=== PATIENT | female | born 1960 | race Caucasian/White ===

== ENCOUNTER 2020-04-02 08:06 | Outpatient (REF) | payer OTHER, SELFPAY ==
[2020-04-02 10:18] LABS: MANUAL DIFF FLAG NO
[2020-04-02 10:45] LABS: Basophils Percent Auto 0.5 % (0-2); Eosinophils Absolute Auto 0.1 X10*3/uL (0.0-0.4); Eosinophils Percent Auto 1.4 % (0-4); Hematocrit 41.9 % (37-47); Hemoglobin 13.5 g/dl (12.0-16.0); Imm Gran Abs Auto 0.02 X10*3/uL (0.00-0.03); Imm Gran Pct Auto 0.3 % (0.0-0.4); Lymphocytes Absolute Auto 1.7 X10*3/uL (1.2-4.9); Lymphocytes Percent Auto 25.5 % (20-40); Mean Corpuscular HGB Conc 32.2 g/dl (31.0-35.0); Mean Corpuscular Hemoglobin 28.8 pg (27.0-33.0); Mean Corpuscular Volume 89.5 fL (80-98); Monocytes Absolute Auto 0.7 X10*3/uL (0.1-1.2); Monocytes Percent Auto 10.4 % (2-11); Neutrophils Absolute Auto 4.1 X10*3/uL (2.0-8.3); Neutrophils Percent Auto 61.9 % (45-73); Platelet Count 234 X10*3/uL (160-400); Red Blood Count 4.68 X10*6/uL (4.20-5.50); Red Cell Distribution Width 12.9 % (11.0-16.0); White Blood Count 6.7 X10*3/uL (4.8-10.8)
[2020-04-02 10:49] LABS: Anion Gap 14 (12-20); Blood Urea Nitrogen 13 mg/dL (9-16); Calcium 8.4 mg/dL (8.4-10.2); Carbon Dioxide 31 mmol/L (22-29); Chloride 102 mmol/L (96-108); Cholesterol 159 mg/dL; Estimated Average Glucose 100 mg/dL; Estimated Glomerular Filt Rate > 60; Glucose Fasting 80 mg/dL (60-99); HDL Cholesterol 69 mg/dL; Hemoglobin A1c % 5.1 %; LDL Cholesterol Calculated 70 mg/dl; Sodium 143 mmol/L (135-145); Triglycerides 104 mg/dL
[2020-04-02 11:13] LABS: TSH reflex Free T4 2.06 mIU/mL (0.32-4.0)
== END 2020-04-02 08:07 | disposition home or self-care (01) ==
LOC: HO.LAB 08:06
PROVIDERS: Visit Provider Nurse Practitioner Family
DX: Z00.00 Encounter for general adult medical examination without abnormal findings (principal)
CPT/HCPCS: 36415; 80048; 80061; 83036; 84443; 85025

== ENCOUNTER 2020-10-16 16:24 | Outpatient (REF) | payer BC, SELFPAY | END 2020-10-16 16:25 | disposition home or self-care (01) | LOC: HO.LNP 16:24 | PROVIDERS: Visit Provider Nurse Practitioner Family | DX: N39.0 Urinary tract infection, site not specified (principal); R31.9 Hematuria, unspecified | CPT/HCPCS: 87086 ==

== ENCOUNTER 2021-03-12 08:41 | Outpatient (REF) | payer BC, SELFPAY ==
[2021-03-12 09:01] LABS: MANUAL DIFF FLAG NO
[2021-03-12 09:46] LABS: Basophils Percent Auto 0.6 % (0-2); Eosinophils Absolute Auto 0.1 X10*3/uL (0.0-0.4); Eosinophils Percent Auto 1.3 % (0-4); Hematocrit 42.1 % (37.0-47.0); Hemoglobin 13.6 g/dl (12.0-16.0); Imm Gran Abs Auto 0.02 X10*3/uL (0.00-0.03); Imm Gran Pct Auto 0.4 % (0.0-0.4); Lymphocytes Absolute Auto 1.5 X10*3/uL (1.2-4.9); Lymphocytes Percent Auto 27.7 % (20-40); Mean Corpuscular HGB Conc 32.3 g/dl (31.0-35.0); Mean Corpuscular Hemoglobin 28.9 pg (27.0-33.0); Mean Corpuscular Volume 89.4 fL (80.0-98.0); Mean Platelet Volume 10.1 fL (9.4-12.3); Monocytes Absolute Auto 0.5 X10*3/uL (0.1-1.2); Monocytes Percent Auto 9.9 % (2-11); Neutrophils Absolute Auto 3.3 x10*3/uL (2.0-8.3); Neutrophils Percent Auto 60.1 % (45-73); Platelet Count 239 X10*3/uL (160-400); Red Blood Count 4.71 X10*6/uL (4.20-5.50); Red Cell Distribution Width 12.8 % (11.0-16.0); White Blood Count 5.5 X10*3/uL (4.8-10.8)
[2021-03-12 10:28] LABS: Alanine Aminotransferase 28 U/L (0-31); Albumin Level 4.1 g/dL (3.5-5.0); Alkaline Phosphatase 74 U/L (39-117); Anion Gap 11 (12-20); Aspartate Amino Transferase 25 U/L (5-31); Bilirubin Total 0.4 mg/dL (0.0-1.0); Blood Urea Nitrogen 14 mg/dL (9-16); Calcium 9.3 mg/dL (8.4-10.2); Carbon Dioxide 33 mmol/L (22-29); Chloride 103 mmol/L (96-108); Cholesterol 154 mg/dL; Estimated Glomerular Filt Rate > 60; Glucose Random 97 mg/dL (60-115); HDL Cholesterol 61 mg/dL; LDL Cholesterol Calculated 75 mg/dl; Potassium 4.1 mmol/L (3.3-5.1); Sodium 143 mmol/L (135-145); Total Protein 6.7 g/dL (6.5-8.0); Triglycerides 90 mg/dL
[2021-03-12 10:35] LABS: Free T4 (Free Thyroxine) 0.93 ng/dL (0.71-1.85); Thyroid Stimulating Hormone 1.65 uIU/mL (0.32-4.0); Vitamin D 25-OH Total 13.7 ng/mL (>30)
[2021-03-12 10:49] LABS: Folate 10.3 ng/mL (> or = 4.0); Vitamin B12 312 pg/mL (200-900)
== END 2021-03-12 08:42 | disposition home or self-care (01) ==
LOC: HO.LAB 08:41
PROVIDERS: PCP Internal Medicine; Visit Provider Internal Medicine
DX: R03.0 Elevated blood-pressure reading, without diagnosis of hypertension (principal); E78.00 Pure hypercholesterolemia, unspecified
CPT/HCPCS: 36415; 80053; 80061; 82306; 82607; 82746; 84439; 84443; 85025

== ENCOUNTER 2021-03-26 08:01 | Outpatient (REF) | payer BC, SELFPAY ==
--- NOTE | ~2021-03-26 | MM_ITS ---
EXAMINATION: MM SCREENING DIGITAL BREAST TOMOSYNTHESIS, BILATERAL CLINICAL INFORMATION: Screening. Asymptomatic. The lifetime risk of breast cancer based on the Tyrer-Cuzick Model is 5%. COMPARISON: Outside mammography: 12/08/2017, 12/01/2017 ([facility]). Outside ultrasound right breast 12/08/2017 ([facility]). TECHNIQUE: Digital breast tomosynthesis is performed in both the craniocaudal and mediolateral oblique views along with computer-aided detection (CAD). Synthesized 2D images are generated from the tomosynthesis. Additional right MLO x2 views are provided. FINDINGS: The breasts are almost entirely fatty (ACR BI-RADS breast composition Category a). Background stromal and fibroglandular densities are stable. There is no interval mass or architectural abnormality or abnormal calcifications. There is a known intradermal epidermal inclusion cyst previously evaluated with ultrasound posterior upper inner right breast, current dimensions under 1 cm. The axilla are unremarkable. No significant changes. MM/MM tomosynthesis screening BI IMPRESSION: No mammographic evidence of malignancy. ASSESSMENT: BI-RADS 2: Benign RECOMMENDATION: Routine annual mammography screening. This patient's information was entered into a reminder system with a target due date for their next mammogram.
== END 2021-03-26 08:02 | disposition home or self-care (01) ==
LOC: HO.MAMMO 08:01
PROVIDERS: Visit Provider Internal Medicine
DX: Z12.31 Encounter for screening mammogram for malignant neoplasm of breast (principal)
CPT/HCPCS: 77063; 77067

== ENCOUNTER → 2021-04-23 11:04 | Outpatient (REF) | payer BC, SELFPAY | LOC: HO.SL 11:04 | PROVIDERS: PCP Internal Medicine; Visit Provider Internal Medicine | DX: Z13.89 Encounter for screening for other disorder (principal) ==

== ENCOUNTER → 2021-05-20 09:41 | Outpatient (REF) | payer BC, SELFPAY | LOC: HO.SL 09:41 | PROVIDERS: PCP Internal Medicine; Visit Provider Internal Medicine | DX: G47.10 Hypersomnia, unspecified (principal) | CPT/HCPCS: 95806 ==

== ENCOUNTER → 2021-06-19 20:53 | Outpatient (REF) | payer BC, SELFPAY | LOC: HO.SL 20:53 | PROVIDERS: PCP Internal Medicine; Visit Provider Internal Medicine | DX: G47.33 Obstructive sleep apnea (adult) (pediatric) (principal) | CPT/HCPCS: 95811 ==

== ENCOUNTER → 2021-07-08 09:51 | Outpatient (BNVA) | payer BC, SELFPAY | PROVIDERS: PCP Internal Medicine; Visit Provider Internal Medicine | DX: E66.01 Morbid (severe) obesity due to excess calories (principal); G47.33 Obstructive sleep apnea (adult) (pediatric); G47.36 Sleep related hypoventilation in conditions classified elsewhere; Z79.899 Other long term (current) drug therapy | CPT/HCPCS: 99202 ==

== ENCOUNTER 2021-12-11 08:57 | Outpatient (REF) | payer BC, SELFPAY ==
[2021-12-11 09:10] LABS: MANUAL DIFF FLAG NO
[2021-12-11 09:39] LABS: Basophils Percent Auto 0.5 % (0-2); Eosinophils Absolute Auto 0.1 X10*3/uL (0.0-0.4); Eosinophils Percent Auto 1.3 % (0-4); Hematocrit 39.9 % (37.0-47.0); Hemoglobin 13.2 g/dl (12.0-16.0); Imm Gran Abs Auto 0.01 X10*3/uL (0.00-0.03); Imm Gran Pct Auto 0.2 % (0.0-0.4); Lymphocytes Absolute Auto 1.4 X10*3/uL (1.2-4.9); Lymphocytes Percent Auto 23.2 % (20-40); Mean Corpuscular HGB Conc 33.1 g/dl (31.0-35.0); Mean Corpuscular Hemoglobin 28.9 pg (27.0-33.0); Mean Corpuscular Volume 87.3 fL (80.0-98.0); Mean Platelet Volume 9.7 fL (9.4-12.3); Monocytes Absolute Auto 0.6 X10*3/uL (0.1-1.2); Monocytes Percent Auto 9.6 % (2-11); Neutrophils Absolute Auto 3.9 x10*3/uL (2.0-8.3); Neutrophils Percent Auto 65.2 % (45-73); Platelet Count 226 X10*3/uL (160-400); Red Blood Count 4.57 X10*6/uL (4.20-5.50); Red Cell Distribution Width 13.1 % (11.0-16.0); White Blood Count 5.9 X10*3/uL (4.8-10.8)
[2021-12-11 10:04] LABS: Alanine Aminotransferase 23 U/L (0-31); Albumin Level 4.1 g/dL (3.5-5.0); Alkaline Phosphatase 80 U/L (39-117); Anion Gap 15 (12-20); Aspartate Amino Transferase 26 U/L (5-31); Bilirubin Total 0.7 mg/dL (0.0-1.0); Blood Urea Nitrogen 15 mg/dL (9-16); Calcium 9.2 mg/dL (8.4-10.2); Carbon Dioxide 28 mmol/L (22-29); Chloride 103 mmol/L (96-108); Cholesterol 144 mg/dL; Estimated Glomerular Filt Rate > 60; Glucose Random 89 mg/dL (60-115); HDL Cholesterol 63 mg/dL; LDL Cholesterol Calculated 68 mg/dl; Sodium 142 mmol/L (135-145); Total Protein 6.7 g/dL (6.5-8.0); Triglycerides 66 mg/dL
[2021-12-11 10:25] LABS: Free T4 (Free Thyroxine) 0.98 ng/dL (0.71-1.85); Thyroid Stimulating Hormone 2.03 uIU/mL (0.32-4.0)
[2021-12-11 10:49] LABS: Folate 10.2 ng/mL (> or = 4.0); Vitamin B12 299 pg/mL (200-900)
== END 2021-12-11 08:58 | disposition home or self-care (01) ==
LOC: HO.LAB 08:57
PROVIDERS: PCP Internal Medicine; Visit Provider Internal Medicine
DX: R30.0 Dysuria (principal); E78.00 Pure hypercholesterolemia, unspecified
CPT/HCPCS: 36415; 80053; 80061; 82306; 82607; 82746; 84439; 84443; 85025

== ENCOUNTER → 2022-06-11 09:23 | Outpatient (BNVA) | payer BC, SELFPAY | PROVIDERS: PCP Internal Medicine; Visit Provider Internal Medicine | DX: Z13.89 Encounter for screening for other disorder (principal) ==

== ENCOUNTER 2022-07-01 08:39 | Outpatient (REF) | payer BC, SELFPAY ==
--- NOTE | ~2022-07-01 | US_ITS ---
EXAMINATION: US ABDOMEN COMPLETE CLINICAL INFORMATION: Other specified abnormal findings of blood chemistry. COMPARISON: None available. TECHNIQUE: Real-time imaging of the abdominal viscera. FINDINGS: PANCREAS: Limited. The visualized pancreatic head and body are normal in appearance. The remainder of the pancreas is obscured from visualization by the overlying bowel gas. ABDOMINAL AORTA: The proximal, mid, and distal segments are normal in caliber. INFERIOR VENA CAVA: Visualized portions are normal. LIVER: The liver is normal in size. The liver contour is normal. There is diffuse increased liver parenchymal echogenicity. No focal hepatic lesion. There is no intrahepatic biliary duct dilatation seen. GALLBLADDER: Normal. The gallbladder is physiologically distended without evidence of stones, sludge, polyps, wall thickening or pericholecystic fluid. COMMON BILE DUCT: Normal in caliber measuring 0.3 cm in diameter. RIGHT KIDNEY: At the lower pole, a 2.5 cm in maximal diameter anechoic, simple cyst is seen. No hydronephrosis or renal calculi. The kidney measures 12.7 cm in maximum dimension. LEFT KIDNEY: Normal. No hydronephrosis. No renal calculi or focal parenchymal lesions. The kidney measures 10.6 cm in maximum dimension. SPLEEN: Normal. The spleen measures 12.1 cm in maximum dimension. FREE FLUID: None. US/US abdomen complete IMPRESSION: 1. There is generalized increase in hepatic echotexture, consistent with fatty infiltration or hepatocellular disease. Please correlate clinically. No focal hepatic mass or intrahepatic biliary dilatation is seen. 2. A 2.5 cm benign, simple right renal cyst is seen, for which no imaging follow-up is recommended. 3. Technically limited ultrasound examination of the pancreas.
== END 2022-07-01 08:40 | disposition home or self-care (01) ==
LOC: HO.HMGCX 08:39
PROVIDERS: PCP Internal Medicine; Visit Provider Internal Medicine
DX: R79.89 Other specified abnormal findings of blood chemistry (principal); R14.0 Abdominal distension (gaseous); R31.9 Hematuria, unspecified
CPT/HCPCS: 76700

== ENCOUNTER 2022-07-28 08:59 | Outpatient (REF) | payer BC, SELFPAY ==
--- NOTE | ~2022-07-28 | FL_ITS ---
EXAMINATION: FL UPPER GI SERIES CLINICAL INFORMATION: Dysphagia. COMPARISON: None available. TECHNIQUE: Routine upper GI air-contrast study was performed in upright and lying position. FINDINGS: Following oral administration of thick barium and effervescent granules there is normal propagation of bolus from the oral cavity through the pharynx, esophagus into stomach without any evidence of obstruction, narrowing or stricture. On placing patient supine and prone lying, there is moderate gastroesophageal reflux without hiatal hernia. The mucosal pattern of the stomach and the duodenum is normal. The course and the caliber and the peristalsis are normal. There is increased flocculation of barium in the distal stomach suspicious for hyperacidity. FLUOROSCOPY TIME: 2.2 minutes. DOSE AREA PRODUCT: 61.615 uGy-m2 (microgray-meter squared) FL/FL upper GI series IMPRESSION: 1. Moderate to large gastroesophageal reflux without hiatal hernia. 2. Increased flocculation of barium in the distal stomach suspicious for hyperacidity.
== END 2022-07-28 09:00 | disposition home or self-care (01) ==
LOC: HO.XRAY 08:59
PROVIDERS: PCP Internal Medicine; Visit Provider Internal Medicine
DX: R13.10 Dysphagia, unspecified (principal); E66.01 Morbid (severe) obesity due to excess calories
CPT/HCPCS: 74240

== ENCOUNTER 2022-07-29 13:55 | Outpatient (REF) | payer BC, SELFPAY ==
[2022-07-29 14:52] LABS: Appearance Urine Cloudy; Color Urine Dark Yellow; Glucose Urine UA Negative (Negative); Leukocyte Esterase Urine Moderate (2+) (Negative); Nitrite Urine Negative (Negative); PH 6.5 (5.0-9.0); Specific Gravity - Urine 1.025 (1.005-1.025); UMIC TRIGGER UACC YES; Urine Blood Moderate (2+) (Negative); Urine Ketones Trace mg/dL (Negative); Urine Protein 30 (1+) mg/dL (Neg-Trace)
[2022-07-30 01:14] LABS: Bacteria Urine None Seen (None Seen); RBC Urine >20 /HPF (0-2); UACC Culture Trigger YES; WBC Urine >50 /HPF (0-5)
== END 2022-07-29 13:56 | disposition home or self-care (01) ==
LOC: HO.LAB 13:55
PROVIDERS: PCP Internal Medicine; Visit Provider Internal Medicine
DX: R30.0 Dysuria (principal); R39.9 Unspecified symptoms and signs involving the genitourinary system
CPT/HCPCS: 81001; 87086

== ENCOUNTER 2022-08-20 11:06 | Outpatient (REF) | payer BC, SELFPAY ==
[2022-08-20 14:03] LABS: Urine Cytology See Pathology rpt
[2022-08-20 14:26] LABS: Appearance Urine Clear; Color Urine Yellow; Glucose Urine UA Negative (Negative); Leukocyte Esterase Urine Trace (Negative); Nitrite Urine Negative (Negative); PH 7.5 (5.0-9.0); Specific Gravity - Urine <= 1.005 (1.005-1.025); UMIC TRIGGER UACC YES; Urine Blood Trace (Negative); Urine Ketones Negative (Negative); Urine Protein Negative (Neg-Trace)
[2022-08-20 14:34] LABS: Bacteria Urine None Seen (None Seen); Hyaline Casts Urine 0-2 /LPF (0-2); RBC Urine 0-2 /HPF (0-2); Squamous Epithelial Cell Urine 0-2 /HPF (0-2); WBC Urine 0-5 /HPF (0-5)
== END 2022-08-20 11:07 | disposition home or self-care (01) ==
LOC: HO.LAB 11:06
PROVIDERS: PCP Internal Medicine; Visit Provider Internal Medicine
DX: R31.9 Hematuria, unspecified (principal)
CPT/HCPCS: 81001; 88112

== ENCOUNTER 2022-08-26 09:49 | Outpatient (REF) | payer BC, SELFPAY ==
--- NOTE | ~2022-08-26 | MM_ITS ---
EXAMINATION: MM SCREENING DIGITAL BREAST TOMOSYNTHESIS, BILATERAL CLINICAL INFORMATION: Screening. Asymptomatic. The lifetime risk of breast cancer based on the Tyrer-Cuzick Model is 6%. COMPARISON: Mammography: 03/26/2021; outside mammography 12/08/2017, 12/01/2017 ([facility]). Outside ultrasound right breast 12/08/2017 ([facility]). TECHNIQUE: Digital breast tomosynthesis is performed in both the craniocaudal and mediolateral oblique views along with computer-aided detection (CAD). Synthesized 2D images are generated from the tomosynthesis. FINDINGS: The breasts are almost entirely fatty (ACR BI-RADS breast composition Category a). Parenchymal pattern and stromal markings are similar to prior studies and there is no developing density or architectural abnormality. There are no significant masses, abnormal calcifications, or other abnormalities. There is a stable small intradermal lesion again seen posterior medial right breast. The axilla are unremarkable. MM/MM tomosynthesis screening BI IMPRESSION: No mammographic evidence of malignancy. ASSESSMENT: BI-RADS 2: Benign RECOMMENDATION: Routine annual mammography screening. This patient's information was entered into a reminder system with a target due date for their next mammogram.
== END 2022-08-26 09:50 | disposition home or self-care (01) ==
LOC: HO.MAMMO 09:49
PROVIDERS: PCP Internal Medicine; Visit Provider Internal Medicine
DX: Z12.31 Encounter for screening mammogram for malignant neoplasm of breast (principal)
CPT/HCPCS: 77063; 77067

== ENCOUNTER 2022-12-09 08:55 | Outpatient (REF) | payer BC, SELFPAY ==
[2022-12-09 09:54] LABS: MANUAL DIFF FLAG NO
[2022-12-09 10:08] LABS: Basophils Percent Auto 0.6 % (0-2); Eosinophils Absolute Auto 0.1 X10*3/uL (0.0-0.4); Eosinophils Percent Auto 0.9 % (0-4); Hematocrit 41.9 % (37.0-47.0); Hemoglobin 13.6 g/dl (12.0-16.0); Imm Gran Abs Auto 0.02 X10*3/uL (0.00-0.03); Imm Gran Pct Auto 0.4 % (0.0-0.4); Lymphocytes Absolute Auto 1.3 X10*3/uL (1.2-4.9); Lymphocytes Percent Auto 24.3 % (20-40); Mean Corpuscular HGB Conc 32.5 g/dl (31.0-35.0); Mean Corpuscular Hemoglobin 28.9 pg (27.0-33.0); Mean Corpuscular Volume 89.1 fL (80.0-98.0); Mean Platelet Volume 9.6 fL (9.4-12.3); Monocytes Absolute Auto 0.5 X10*3/uL (0.1-1.2); Monocytes Percent Auto 9.5 % (2-11); Neutrophils Absolute Auto 3.4 x10*3/uL (2.0-8.3); Neutrophils Percent Auto 64.3 % (45-73); Platelet Count 229 X10*3/uL (160-400); Red Cell Distribution Width 12.6 % (11.0-16.0); White Blood Count 5.3 X10*3/uL (4.8-10.8)
[2022-12-09 10:44] LABS: Alanine Aminotransferase 23 U/L (0-31); Alkaline Phosphatase 73 U/L (39-117); Anion Gap 12 (12-20); Aspartate Amino Transferase 22 U/L (5-31); Bilirubin Total 0.6 mg/dL (0.0-1.0); Blood Urea Nitrogen 14 mg/dL (9-16); Calcium 9.4 mg/dL (8.4-10.2); Carbon Dioxide 28 mmol/L (22-29); Chloride 106 mmol/L (96-108); Cholesterol 149 mg/dL (<200); Estimated Glomerular Filt Rate > 60; Glucose Random 91 mg/dL (60-115); HDL Cholesterol 70 mg/dL (>40); LDL Cholesterol Calculated 65 mg/dL (<100); Potassium 3.9 mmol/L (3.3-5.1); Sodium 142 mmol/L (135-145); Total Protein 6.9 g/dL (6.5-8.0); Triglycerides 72 mg/dL (<150)
[2022-12-09 11:01] LABS: Free T4 (Free Thyroxine) 0.89 ng/dL (0.71-1.85); Thyroid Stimulating Hormone 1.35 uIU/mL (0.32-4.0); Vitamin D 25-OH Total 15.5 ng/mL (>30)
[2022-12-09 11:14] LABS: Folate 7.6 ng/mL (> or = 4.0); Vitamin B12 334 pg/mL (200-900)
== END 2022-12-09 08:56 | disposition home or self-care (01) ==
LOC: HO.LAB 08:55
PROVIDERS: Absent Provider Internal Medicine; PCP Internal Medicine; Visit Provider Internal Medicine
DX: E66.01 Morbid (severe) obesity due to excess calories (principal); E78.00 Pure hypercholesterolemia, unspecified; G47.33 Obstructive sleep apnea (adult) (pediatric); Z79.899 Other long term (current) drug therapy
CPT/HCPCS: 36415; 80053; 80061; 82306; 82607; 82746; 84439; 84443; 85025

== ENCOUNTER 2022-12-09 08:55 | Outpatient (AMB) | payer BC, SELFPAY ==
[2022-12-09 09:00] VITALS: BP 146/78; PULSE 67; O2SAT 96; BMI 45.4
--- NOTE | 2022-12-09 09:00 | MHC.OFFVIS ---
Intake Vital Signs 12/09/22 09:00 Height 5 ft 1 in Weight 240 lb 4.862 oz BMI 45.4 BP 146/78 H Blood Pressure Location Lt brachial Position Sitting Pulse 67 Pulse Source Pulse Oximeter Pulse Oximetry (%) 96 Oxygen Delivery Method Room Air Intake Visit Reasons: hamzah Allergies No Known Allergies Allergy (Verified 12/09/22 09:22) Medication List - Last Reconciled 12/09/22 by Renetta Hernández MD cholecalciferol (vitamin D3) 25 mcg PO DAILY ciprofloxacin HCl 500 mg PO BID [CPAP ] fluticasone propionate 50 mcg/actuation (Flonase Allergy Relief) 2 sprays intranasal DAILY ibuprofen 600 mg PO TID PRN omeprazole 20 mg PO DAILY sulfamethoxazole-trimethoprim 800-160 mg (Bactrim DS) 1 tab PO BID [wrist Splint bilateral As directed] Do you need a note to return to daycare/school/sports/work: No HPI hamzah HPI Details This 62 years old very pleasant female is here after 6 months for routine follow-up. She uses CPAP very regularly and is very happy with the device as well as the mask Sleeps more than 7 hours every night. No issues with the CPAP device or mass. Weight has not changed much, but overall she is doing good. [facility] Medical History Annual physical exam Breast cancer screening by mammogram Hematuria Hypersomnia Hypertension Morbid obesity Nasal congestion Nocturnal hypoxemia due to obesity Obesities, morbid Obstructive sleep apnea hypopnea, severe HAMZAH (obstructive sleep apnea) Surgical History Previous section Family History Mother Lung cancer Father COPD (chronic obstructive pulmonary disease) Myocardial infarct Alcohol abuse Brother Alcohol abuse Social History Housing: House Alcohol intake: never Patient Tobacco Use Status: Never used Tobacco Tobacco use type: Cigarette e-Cigarette/Vaping Use: Never Used Second Hand Smoke Exposure: No 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al status: employed Cognitive needs: No Hearing needs: No Vision needs: Yes Female Reproductive History Menstrual control method: vaginal ring Review of Systems Const All systems reviewed & are unremarkable except as noted in HPI and below Reports snoring Eyes Reports no additional complaints ENT Reports nasal congestion (Intermittent, mild) Card Denies chest pain, Denies irregular heart rhythm and Denies leg edema Resp Denies cough, Reports snoring and Denies wheezing GI Reports no additional complaints Reports nocturia Musc Reports no additional complaints Skin/Breast Reports system reviewed and no additional complaints, except as documented Neuro Reports no additional complaints Psych Reports no additional complaints Endo Reports no additional complaints Daniel/Lymph Reports no additional complaints Aller/Immun Denies wheezing Physical Exam Vital Signs: Last Vital Signs Pulse 67 12/09/22 09:00 BP 146/78 H 12/09/22 09:00 Pulse Ox 96 12/09/22 09:00 Oxygen Delivery Method Room Air 12/09/22 09:00 BMI result Body Mass Index 45.4 Const General: healthy appearing (Except for being overweight), comfortable, no acute distress, alert and awake Orientation/consciousness: patient oriented x3 HEENT Head: Yes normal to inspection General nose exam: No nasal polyps present and No nasal discharge present Face and sinus: Yes sinuses nontender Mouth: oropharynx normal Throat: No posterior oropharynx normal (Oropharynx is crowded, Mallampati class 4) Eyes General: appearance normal, both eyes and all related structures Neck Neck: Yes normal visual inspection, Yes no lymphadenopathy, Yes trachea midline, Yes no JVD and Yes other (Neck size 17 in) Thyroid: Thyroid normal Chest Chest palpation & inspection: normal inspection of the chest, normal palpation of entire chest wall and no tenderness Resp Effort & Inspection: normal respiratory effort Auscultation: clear to auscultation bilaterally, no crackles, no rhonchi and no wheezes Percussion: percussion normal Cardio Palpation: normal PMI Rate: regular rate Rhythm: regular rhythm Heart sounds: no gallops and no murmurs Peripheral pulses: Peripheral pulses 2+ throughout GI Palpation (GI): Soft to palpation, nontender, No hepatosplenomegaly present, no masses and Other GI palpation findings present (Abdomen is moderately obese and protuberant) Auscultation: normal bowel sounds Back/Spine/Pelvis Thoracic/Lumbar Spine: thoracic and lumbar spine normal to inspection Skin General skin exam: no rashes or lesions noted Neuro General: patient oriented x3 and no focal motor deficits Cranial nerves: Yes CN's II-XII intact bilaterally Extrem General: Yes normal to inspection, Yes no clubbing, cyanosis or edema and Yes no calf tenderness Psych Appearance: grossly normal and well kempt Speech and movement: Normal speech and movement present Results Reviewed Results Reviewed: Compliance data for the last 30 nights reviewed. She has used 30/30 nights 100%, average use per night 8 hours 30 minutes. Pressure 15 cm EPR level 3. Only minimal air leak. Residual AHI 0.8 Assessment & Plan Assessment & Plan (1) Morbid obesity: Comment: Patient is morbidly obese, she is fully aware of this, SHE IS TRYING TO LOSE WEIGHT ON HER OWN. SHE DOES KEEP TRACK OF DAILY WALKING AND ALSO DIETARY INTAKE. I DID TALK TO HER ABOUT CUTTING DOWN THE PORTIONS OF THE FOOD, AN INCREASE AMOUNT OF DAILY WALKING. Code(s): E66.01 - Morbid (severe) obesity due to excess calories (2) HAMZAH (obstructive sleep apnea): Comment: Patient has severe obstructive sleep apnea accompanied with nocturnal hypoxemia. CPAP titration corrected the obstructive events as well as hypoxemia with pressure of 15 cm. PATIENT HAS BEEN USING THE NEW CPAP DEVICE REGULARLY, AND BENEFITING. Code(s): G47.33 - Obstructive sleep apnea (adult) (pediatric) Coding Level of Care Code Est Pt Level 3 (07969) Diagnoses Morbid obesity E66.01 HAMZAH (obstructive sleep apnea) G47.33
== END 2022-12-09 09:34 | disposition home or self-care (01) ==
PROVIDERS: PCP Internal Medicine; Visit Provider Internal Medicine
DX: E66.01 Morbid (severe) obesity due to excess calories (principal); G47.33 Obstructive sleep apnea (adult) (pediatric)
CPT/HCPCS: 99213

== ENCOUNTER 2022-12-18 08:32 | Outpatient (AMB) | payer BC, SELFPAY ==
[2022-12-18 08:47] VITALS: BP 164/98; PULSE 75; O2SAT 98; BMI 44.6
--- NOTE | 2022-12-18 08:47 | A.OFFPC_ITS ---
Vital Signs 12/18/22 08:47 Height 5 ft 1 in Weight 236 lb BMI 44.6 BP 164/98 H Blood Pressure Location Lt brachial Position Sitting Pulse 75 Pulse Source Pulse Oximeter Pulse Oximetry (%) 98 Oxygen Delivery Method Room Air Intake Visit Reasons: Obstructive sleep apnea Allergies No Known Allergies Allergy (Verified 12/18/22 08:48) Medication List - Last Reconciled 12/18/22 by Joanne Nguyen MD cholecalciferol (vitamin D3) 25 mcg PO DAILY [CPAP ] fluticasone propionate 50 mcg/actuation (Flonase Allergy Relief) 2 sprays intranasal DAILY ibuprofen 600 mg PO TID PRN omeprazole 20 mg PO DAILY [wrist Splint bilateral As directed] Tobacco use date assessed: 06/11/22 Dental Screening Dental Screen Date: 12/18/22 Did you have a dental visit in the last 12 months?: Yes Did you have a dental problem in the last 6 months where you did not have access to dental care?: No Was dental information given to patient?: Patient has dentist HPI Obstructive sleep apnea HPI Details 62-year-old obese female with obstructive sleep apnea hematuria coming in for follow-up last seen in May 2022 mammogram is up-to-date colonoscopy is up-to-date. Patient is here for follow-up. Patient follows up with Pulmonary for the obstructive sleep apnea uses CPAP regularly more than 4 hours a night and benefits from this. Patient had the upper GI series in July showing a moderately large gastroesophageal reflux without hiatal hernia suspects also hyperacidity. Patient also had an ultrasound of the abdomen showing fatty liver noted right kidney cyst but otherwise no kidney stone. [facility] Medical History Annual physical exam Breast cancer screening by mammogram Hematuria Hypersomnia Hypertension Morbid obesity Nasal congestion Nocturnal hypoxemia due to obesity Obesities, morbid Obstructive sleep apnea hypopnea, severe WILMER (obstructive sleep apnea) Surgical History Previous section Family History (Updated 12/18/22 @ 08:49 by Alysha Mckeon CMA) Mother Lung cancer Father COPD (chronic obstructive pulmonary disease) Myocardial infarct Alcohol abuse Brother Alcohol abuse Social History Housing: House Alcohol intake: never Patient Tobacco Use Status: Never used Tobacco Tobacco use type: Cigarette e-Cigarette/Vaping Use: Never Used Second Hand Smoke Exposure: No 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al status: employed Cognitive needs: No Hearing needs: No Vision needs: Yes Questionnaire PHQ-9 Over the last 2 weeks, how often have you been bothered by any of the following problems? 1. Little interest or pleasure in doing things: not at all 2. Feeling down, depressed, or hopeless: not at all 3. Trouble falling or staying asleep, or sleeping too much: not at all 4. Feeling tired or having little energy: not at all 5. Poor appetite or overeating: not at all 6. Feeling bad about yourself - or that you are a failure or have let yourself or your family down: not at all 7. Trouble concentrating on things, such as reading the newspaper or watching television: not at all 8. Moving or speaking so slowly that other people could have noticed. Or the opposite - being so fidgety or restless that you have been moving around a lot more than usual: not at all 9. Thoughts that you would be better off or of hurting yourself in some way: not at all Total score: 0 Depression Screening Interpretation: Negative Source: Developed by Drs. Nino Jackson, Escobar Woodruff and colleagues, with an educational fidel from [employer]. Thrive Questionnaire Date Thrive assessed: 06/11/22 AUDIT C Alcohol Use Questionnaire (AUDIT-C) 1. How often do you have a drink containing alcohol?: Monthly or less 2. How many drinks containing alcohol do you have on a typical day when you are drinking?: 1 or 2 3. How often do you have six or more drinks on one occasion?: Never Total Score: 1 KYLER-7 AMB Questionnaire KYLER-7 Date KYLER - 7 assessed: 06/11/22 Source: Developed by Drs. Nino Jackson, Escobar Woodruff and colleagues, with an educational fidel from [employer]. Physical exam (Primary Care) Vital Signs: Last Vital Signs Pulse 75 12/18/22 08:47 BP 164/98 H 12/18/22 08:47 Pulse Ox 98 12/18/22 08:47 Oxygen Delivery Method Room Air 12/18/22 08:47 BMI result Body Mass Index 44.6 Tobacco/Smoking Status: Tobacco use Status Tobacco use date assessed 06/11/22 12/18/22 08:49 Patient Tobacco Use Status Never used Tobacco 12/18/22 08:49 Tobacco use type Cigarette 12/18/22 08:49 e-Cigarette/Vaping Use Never Used 12/18/22 08:49 PHQ-9: PHQ-9 Score PHQ-9: Total score 0 12/18/22 08:49 Depression Screening Interpretation: Negative Thrive Assessment: Date of Thrive Assessment Date Thrive assessed 06/11/22 12/18/22 08:49 Const General: alert; No acute distress Eyes Conjunctivae: conjunctivae normal Resp Auscultation: clear to auscultation bilaterally Cardio Rate: regular rate Rhythm: regular rhythm GI Inspection: Yes normal to inspection Extrem General: Yes normal to inspection and No edema Assessment and Plan Assessment & Plan (1) GERD (gastroesophageal reflux disease): Comment: July 2022 Code(s): K21.9 - Gastro-esophageal reflux disease without esophagitis Plan: Avoid the foods that causes that usually spicy foods, tomato products, juices, coffee, soda and foods that your sensitive to. After eating do not lie down, allow 3-4 hours before in lie down. And keep the head of bed above 30 degrees to avoid the acid from going up. Continue with omeprazole (2) Fatty liver: Comment: June 2022 Code(s): K76.0 - Fatty (change of) liver, not elsewhere classified Plan: Patient is advised to have low-fat diet and keep active (3) WILMER (obstructive sleep apnea): Comment: Patient has severe obstructive sleep apnea accompanied with nocturnal hypoxemia. CPAP titration corrected the obstructive events as well as hypoxemia with pressure of 15 cm. PATIENT HAS BEEN USING THE NEW CPAP DEVICE REGULARLY, AND BENEFITING. Code(s): G47.33 - Obstructive sleep apnea (adult) (pediatric) Plan: Continue to use the CPAP more than 4 hours a night and benefits from this patient follows up with Pulmonary also (4) Morbid obesity: Comment: Patient is morbidly obese, she is fully aware of this, SHE IS TRYING TO LOSE WEIGHT ON HER OWN. SHE DOES KEEP TRACK OF DAILY WALKING AND ALSO DIETARY INTAKE. I DID TALK TO HER ABOUT CUTTING DOWN THE PORTIONS OF THE FOOD, AN INCREASE AMOUNT OF DAILY WALKING. Code(s): E66.01 - Morbid (severe) obesity due to excess calories Plan: Continue with diet and exercise (5) Vitamin D deficiency: Code(s): E55.9 - Vitamin D deficiency, unspecified Plan: Vitamin-D 7456-1488 units once a day Medications: New semaglutide for 4 weeks 0.25 mg (0.368 mL) subcut QWEEK 3 mL 1RF E66.01 - Morbid (severe) obesity due to excess calories semaglutide for 4 weeks 0.25 mg (0.368 mL) subcut QWEEK 3 mL 1RF E66.01 - Morbid (severe) obesity due to excess calories Coding Level of Care Code Est Pt Level 4 (70839) Diagnoses GERD (gastroesophageal reflux disease) K21.9 Fatty liver K76.0 WILMER (obstructive sleep apnea) G47.33 Morbid obesity E66.01 Vitamin D deficiency E55.9
== END 2022-12-18 09:29 | disposition home or self-care (01) ==
PROVIDERS: PCP Internal Medicine; Visit Provider Internal Medicine
DX: K21.9 Gastro-esophageal reflux disease without esophagitis (principal); E66.01 Morbid (severe) obesity due to excess calories; E55.9 Vitamin D deficiency, unspecified; Z68.41 Body mass index [BMI] 40.0-44.9, adult; K76.0 Fatty (change of) liver, not elsewhere classified; G47.33 Obstructive sleep apnea (adult) (pediatric)
CPT/HCPCS: 99214

== ENCOUNTER 2023-02-02 12:47 | Outpatient (AMB) | payer BC, SELFPAY ==
--- NOTE | 2023-02-02 13:49 | AM.OFFWIN_ITS ---
Intake Vital Signs 02/02/23 13:50 Height 5 ft 1 in Weight 107.048 kg BMI 44.6 BP 138/78 Blood Pressure Location Lt brachial Position Sitting Pulse 81 Pulse Source Pulse Oximeter Temp 97.9 F Temp Source Temporal Artery Scan Pulse Oximetry (%) 98 Intake Visit Reasons: EP, blood in urine, back pain Intake Note: pt is here for c/o back pain, blood in urine Patient Tobacco Use Status: Never used Tobacco Allergies No Known Allergies Allergy (Verified 02/02/23 13:51) Do you need a note to return to daycare/school/sports/work: Yes HPI EP, blood in urine, back pain HPI Details Patient presents with 1 week intermittent pink color in the urine, mild pelvic pressure and discomfort and mild low back pain. She denies fever chills, GI symptoms, history kidney stones, [place] hematuria, nausea or vomiting. She has had UTIs in the past which felt similar. She has been trying to increase her fluid intake. Denies vaginal symptoms or bleeding. [facility] Medical History Annual physical exam Breast cancer screening by mammogram Hematuria Hypersomnia Hypertension Morbid obesity Nasal congestion Nocturnal hypoxemia due to obesity Obesities, morbid Obstructive sleep apnea hypopnea, severe WILMER (obstructive sleep apnea) Surgical History Previous section Family History (Updated 12/18/22 @ 08:49 by Alysha Mckeon CMA) Mother Lung cancer Father COPD (chronic obstructive pulmonary disease) Myocardial infarct Alcohol abuse Brother Alcohol abuse Social History Housing: House Alcohol intake: never Patient Tobacco Use Status: Never used Tobacco Tobacco use type: Cigarette e-Cigarette/Vaping Use: Never Used Second Hand Smoke Exposure: No 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al status: employed Cognitive needs: No Hearing needs: No Vision needs: Yes Review of Systems Const Reports as per HPI and Reports no additional complaints GI Reports as per HPI and Reports no additional complaints Reports as per HPI Musc Reports no additional complaints and Reports as per HPI Neuro Reports no additional complaints and Reports as per HPI Physical Exam Vital Signs: Last Vital Signs Temp 97.9 F 02/02/23 13:50 Pulse 81 02/02/23 13:50 BP 138/78 02/02/23 13:50 Pulse Ox 98 02/02/23 13:50 BMI result Body Mass Index 44.6 Const General: cooperative, comfortable and no acute distress Orientation/consciousness: patient oriented x3 Resp Effort & Inspection: normal respiratory effort Auscultation: clear to auscultation bilaterally Cardio Rate: regular rate Rhythm: regular rhythm Heart sounds: S1 normal heart sound present and S2 normal heart sound present General: Yes no CVA tenderness Back/Spine/Pelvis Back: no CVA tenderness Thoracic/Lumbar Spine: thoracic and lumbar spine normal to inspection and other (Mild ttp of the right lower jose lumbar musculature extending to glute) Neuro General: patient oriented x3 Results AMB Urinalysis, Automated UA Leukoctes 0 Samreen/uL Last Edit by Temo Corado CMA on 02/02/23 14:19 UA Nitrite Negative Last Edit by Temo Corado CMA on 02/02/23 14:19 UA Urobilinogen 0.2 mg/dL Last Edit by Temo Corado CMA on 02/02/23 14 :19 UA Protein 0 mg/dL Last Edit by Temo Corado CMA on 02/02/23 14:19 UA pH 6.0 Last Edit by Temo Corado CMA on 02/02/23 14:19 UA Blood 25 Vic/uL Last Edit by Temo Corado CMA on 02/02/23 14:19 UA Specific [place] 1.020 Last Edit by Temo Corado CMA on 02/02/23 14:19 UA Ketone Negative Last Edit by Temo Corado CMA on 02/02/23 14:19 UA Bilirubin 0 mg/dL Last Edit by Temo Corado CMA on 02/02/23 14:19 UA Glucose 0 mg/dL Last Edit by Temo Corado CMA on 02/02/23 14:19 Assessment & Plan Assessment & Plan (1) Dysuria: Code(s): R30.0 - Dysuria Plan: Will treat with course of Macrobid. Advised patient to follow-up with PCP or return to clinic if symptoms persists or worsen. Consider ultrasound KUB or referral to urology as needed. Orders: Orders AMB Urinalysis Automated Today Z13.9 - Encounter for screening, unspecified AMB Urinalysis Automated Today Z13.9 - Encounter for screening, unspecified Medications: New nitrofurantoin monohyd/m-cryst 100 mg (Macrobid) must administer with a meal/food 100 mg PO Q12H 10 caps 0RF 5 days Coding Level of Care Code Est Pt Level 3 (90155) Diagnoses Dysuria R30.0
[2023-02-02 13:50] VITALS: BP 138/78; PULSE 81; TEMP 36.6; O2SAT 98; BMI 44.6
== END 2023-02-02 14:36 | disposition home or self-care (01) ==
PROVIDERS: PCP Internal Medicine; Visit Provider Physician Assistant
DX: Z13.9 Encounter for screening, unspecified (principal); R30.0 Dysuria
CPT/HCPCS: 81003; 99213

== ENCOUNTER 2023-06-16 09:55 | Outpatient (AMB) | payer BC, SELFPAY ==
[2023-06-16 09:57] VITALS: BP 140/98; PULSE 69; O2SAT 99; BMI 43.6
--- NOTE | 2023-06-16 09:57 | MHC.PC.OV ---
Vital Signs 06/16/23 09:57 Height 5 ft 1 in Weight 231 lb 0.2 oz BMI 43.6 BP 140/98 H Blood Pressure Location Lt brachial Position Sitting Pulse 69 Pulse Source Pulse Oximeter Temp Source Skin Pulse Oximetry (%) 99 Oxygen Delivery Method Room Air Intake Visit Reasons: pe Intake Note: Patient is here today for a physical. 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 Allergies No Known Allergies Allergy (Verified 06/16/23 09:57) Medication List - Last Reconciled 06/16/23 by Joanne Nguyen MD cholecalciferol (vitamin D3) 25 mcg PO DAILY [CPAP ] fluticasone propionate 50 mcg/actuation (Flonase Allergy Relief) 2 sprays intranasal DAILY ibuprofen 600 mg PO TID PRN omeprazole 20 mg PO DAILY [wrist Splint bilateral As directed] Tobacco use date assessed: 06/16/23 Dental Screening Dental Screen Date: 06/16/23 Did you have a dental visit in the last 12 months?: Yes Did you have a dental problem in the last 6 months where you did not have access to dental care?: No Was dental information given to patient?: Patient has dentist HPI pe HPI Details 63-year-old morbidly obese female with fatty liver obstructive sleep apnea GERD coming in for physical exam last seen in November 2022. Patient's colonoscopy is up-to-date mammogram is up-to-date. Urgent care visit January 2023 dysuria treated with Macrodantin. congestion presently and feels sinus infection. congested 2 weeks, post nasal drain, congested productive, blocked ears, . mild constipation PFSH Medical History (Updated 06/16/23 @ 11:17 by Joanne Nguyen MD) Hematuria Bloated abdomen Breast cancer screening by mammogram Nocturnal hypoxemia due to obesity WILMER (obstructive sleep apnea) Morbid obesity Obesities, morbid Annual physical exam Obstructive sleep apnea hypopnea, severe Nasal congestion Hypertension Hypersomnia Hematuria Surgical History Previous section Family History (Updated 12/18/22 @ 08:49 by Alysha Mckeon CMA) Mother Lung cancer Father COPD (chronic obstructive pulmonary disease) Myocardial infarct Alcohol abuse Brother Alcohol abuse Social History Housing: House Alcohol intake: never Patient Tobacco Use Status: Never used Tobacco Tobacco use type: Cigarette e-Cigarette/Vaping Use: Never Used Second Hand Smoke Exposure: No 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al status: employed Cognitive needs: No Hearing needs: No Vision needs: Yes Questionnaire PHQ-9 Over the last 2 weeks, how often have you been bothered by any of the following problems? 1. Little interest or pleasure in doing things: not at all 2. Feeling down, depressed, or hopeless: not at all 3. Trouble falling or staying asleep, or sleeping too much: not at all 4. Feeling tired or having little energy: not at all 5. Poor appetite or overeating: not at all 6. Feeling bad about yourself - or that you are a failure or have let yourself or your family down: not at all 7. Trouble concentrating on things, such as reading the newspaper or watching television: not at all 8. Moving or speaking so slowly that other people could have noticed. Or the opposite - being so fidgety or restless that you have been moving around a lot more than usual: not at all 9. Thoughts that you would be better off or of hurting yourself in some way: not at all Total score: 0 Depression Screening Interpretation: Negative Depression Screening Done: Yes Source: Developed by Drs. Nino Jackson, Tami Martino, Escobar Del Rio and colleagues, with an educational fidel from [email or web address]. Thrive Questionnaire Date Thrive assessed: 06/16/23 AUDIT C Alcohol Use Questionnaire (AUDIT-C) 1. How often do you have a drink containing alcohol?: Monthly or less 2. How many drinks containing alcohol do you have on a typical day when you are drinking?: 1 or 2 3. How often do you have six or more drinks on one occasion?: Never Total Score: 1 KYLER-7 AMB Questionnaire KYLER-7 Date KYLER - 7 assessed: 06/16/23 Feeling nervous, anxious, or on edge: 0 = Not at all Not being able to stop or control worryin = Not at all Worrying too much about different things: 0 = Not at all Trouble relaxin = Not at all Being so restless that it is hard to sit still: 0 = Not at all Becoming easily annoyed or irritable: 0 = Not at all Feeling afraid as if something awful might happen: 0 = Not at all Total KYLER-7 score (0-4 normal; 5-9 mild; 10-14 moderate; 15-21 severe): 0 Source: Developed by Drs. Nino Jackson, Tami Martino, Escobar Del Rio and colleagues, with an educational fidel from [email or web address]. Review of Systems Const Denies poor appetite and Denies weakness Eyes Denies no additional complaints ENT Reports Normal hearing present, Denies dizziness, Denies nasal congestion, Denies tinnitus and Denies sore throat Card Denies chest pain, Denies syncope, Denies rapid heart rate and Denies dyspnea Resp Denies cough and Denies dyspnea GI Denies change in stool character, Reports constipation, Denies diarrhea, Denies nausea and Denies vomiting Denies urinary frequency, Denies difficulty voiding and Denies dysuria Neuro Reports Normal hearing present, Denies confusion, Denies dizziness, Denies syncope and Denies weakness Psych Denies confusion Physical exam (Primary Care) Vital Signs: Last Vital Signs Pulse 69 06/16/23 09:57 BP 140/98 H 06/16/23 09:57 Pulse Ox 99 06/16/23 09:57 Oxygen Delivery Method Room Air 06/16/23 09:57 BMI result Body Mass Index 43.6 Tobacco/Smoking Status: Tobacco use Status Tobacco use date assessed 06/16/23 06/16/23 09:58 Patient Tobacco Use Status Never used Tobacco 06/16/23 09:58 Tobacco use type Cigarette 06/16/23 09:58 e-Cigarette/Vaping Use Never Used 06/16/23 09:58 PHQ-9: PHQ-9 Score PHQ-9: Total score 0 06/16/23 10:39 Depression Screening Interpretation: Negative Thrive Assessment: Date of Thrive Assessment Date Thrive assessed 06/16/23 06/16/23 09:58 Const General: No confusion Orientation/consciousness: No confusion HENMT Head: Yes normocephalic Ears: external ears normal and TM's normal bilaterally Face and sinus: Yes normal facial exam Mouth: moist mucous membranes Throat: Yes tonsils normal Eyes Conjunctivae: conjunctivae normal Pupils: Equal, round and reactive pupils present and Pupil accommodation reflex normal Direct Ophthalmoscopy: normal light reflex Neck Neck: No lymphadenopathy Thyroid: Thyroid normal Chest Chest palpation & inspection: normal inspection of the chest Resp Effort & Inspection: normal respiratory effort and no audible wheezes Auscultation: clear to auscultation bilaterally, no crackles, no wheezes and lung sounds not diminished Cardio Rate: regular rate Rhythm: regular rhythm Peripheral pulses: radial pulses present and dorsalis pedis present GI Palpation (GI): no masses Auscultation: normal bowel sounds and normoactive bowel sounds Rectal Exam - Female: deferred Skin General skin exam: no rashes or lesions noted Rashes: no rashes Neuro General: No confusion Cranial nerves: Yes Equal, round and reactive pupils present and Yes Normal hearing present Cognition (Neuro): normal cognition Gait exam (Neuro): Normal gait present Motor exam (neuro): 5/5 motor strength present throughout Deep tendon reflexes (DTR's): Right brachioradialis reflex intensity grade: 2+, Left brachioradialis reflex intensity grade: 2+, Right patellar reflex intensity grade: 2+ and Left patellar reflex intensity grade: 2+ Extrem General: No edema Assessment and Plan Assessment & Plan (1) Annual physical exam: Code(s): Z00.00 - Encounter for general adult medical examination without abnormal findings (2) GERD (gastroesophageal reflux disease): Comment: July 2022 Code(s): K21.9 - Gastro-esophageal reflux disease without esophagitis Plan: Avoid the foods that causes that usually spicy foods, tomato products, juices, coffee, soda and foods that your sensitive to. After eating do not lie down, allow 3-4 hours before in lie down. And keep the head of bed above 30 degrees to avoid the acid from going up. (3) Fatty liver: Comment: June 2022 Code(s): K76.0 - Fatty (change of) liver, not elsewhere classified Plan: Low-fat diet and exercise (4) Cervical cancer screening: Code(s): Z12.4 - Encounter for screening for malignant neoplasm of cervix Plan: Reminded about Pap smears. (5) WILMER (obstructive sleep apnea): Comment: Patient has severe obstructive sleep apnea accompanied with nocturnal hypoxemia. CPAP titration corrected the obstructive events as well as hypoxemia with pressure of 15 cm. PATIENT HAS BEEN USING THE NEW CPAP DEVICE REGULARLY, AND BENEFITING. Code(s): G47.33 - Obstructive sleep apnea (adult) (pediatric) Plan: Continue to use the CPAP more than 4 hours a night and benefits from this (6) Morbid obesity: Comment: Patient is morbidly obese, she is fully aware of this, SHE IS TRYING TO LOSE WEIGHT ON HER OWN. SHE DOES KEEP TRACK OF DAILY WALKING AND ALSO DIETARY INTAKE. I DID TALK TO HER ABOUT CUTTING DOWN THE PORTIONS OF THE FOOD, AN INCREASE AMOUNT OF DAILY WALKING. Code(s): E66.01 - Morbid (severe) obesity due to excess calories Plan: Diet and exercise (7) Acute bronchitis: Code(s): J20.9 - Acute bronchitis, unspecified Plan: antibiotic treatment sent Orders: Orders Free T4 (Free Thyroxine) 6 Months K21.9 - Gastro-esophageal reflux disease without esophagitis Complete Blood Count Auto Diff 6 Months K21.9 - Gastro-esophageal reflux disease without esophagitis Comprehensive Met. Panel 6 Months K21.9 - Gastro-esophageal reflux disease without esophagitis Thyroid Stimulating Hormone 6 Months K21.9 - Gastro-esophageal reflux disease without esophagitis Vitamin B12 and Folate 6 Months K21.9 - Gastro-esophageal reflux disease without esophagitis Lipid Panel 6 Months E78.00 - Pure hypercholesterolemia, unspecified, K21.9 - Gastro-esophageal reflux disease without esophagitis Medications: New azithromycin (Zithromax) For 250 mg dose pack: take 500 mg today (day 1), then 250 mg for 4 days (days 2-5) PO 6 tabs 0RF J20.9 - Acute bronchitis, unspecified Refilled fluticasone propionate 50 mcg/actuation (Flonase Allergy Relief) administer into each nostril 2 sprays intranasal DAILY 16 grams 2RF R09.81 - Nasal congestion Coding Level of Care Code Est Pt Prev Care 40-64y(31620) Diagnoses Annual physical exam Z00.00 GERD (gastroesophageal reflux disease) K21.9 Fatty liver K76.0 Cervical cancer screening Z12.4 WILMER (obstructive sleep apnea) G47.33 Morbid obesity E66.01 Acute bronchitis J20.9
== END 2023-06-16 11:30 | disposition home or self-care (01) ==
PROVIDERS: PCP Internal Medicine; Visit Provider Internal Medicine
DX: Z00.00 Encounter for general adult medical examination without abnormal findings (principal); E66.01 Morbid (severe) obesity due to excess calories; Z68.41 Body mass index [BMI] 40.0-44.9, adult; K21.9 Gastro-esophageal reflux disease without esophagitis; K76.0 Fatty (change of) liver, not elsewhere classified; G47.33 Obstructive sleep apnea (adult) (pediatric); J20.9 Acute bronchitis, unspecified
CPT/HCPCS: 99396

== ENCOUNTER 2023-06-16 15:10 | Outpatient (AMB) | payer BC, SELFPAY ==
[2023-06-16 15:17] VITALS: BP 122/90; PULSE 69; O2SAT 96; BMI 44.6
--- NOTE | 2023-06-16 15:17 | A.OFFVIS_ITS ---
Intake Vital Signs 06/16/23 15:17 Height 5 ft 1 in Weight 235 lb 14.314 oz BMI 44.6 BP 122/90 H Blood Pressure Location Lt brachial Position Sitting Pulse 69 Pulse Source Pulse Oximeter Pulse Oximetry (%) 96 Oxygen Delivery Method Room Air Intake Visit Reasons: wilmer Intake Note: pt is here for follow up and states she is using her cpap, has bronchitis was given antibiotic by this am. 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 Allergies No Known Allergies Allergy (Verified 06/16/23 15:26) Medication List - Last Reconciled 06/16/23 by Renetta Hernández MD azithromycin (Zithromax) For 250 mg dose pack: take 500 mg today (day 1), then 250 mg for 4 days (days 2-5) PO cholecalciferol (vitamin D3) 25 mcg PO DAILY [CPAP ] fluticasone propionate 50 mcg/actuation (Flonase Allergy Relief) 2 sprays intranasal DAILY ibuprofen 600 mg PO TID PRN omeprazole 20 mg PO DAILY [wrist Splint bilateral As directed] Do you need a note to return to daycare/school/sports/work: No HPI wilmer HPI Details SUSANA IS VERY PLEASANT 63 YEARS OLD FEMALE WHO HAS MORBID OBESITY AND OBSTRUCTIVE SLEEP APNEA. SHE HAS BEEN STARTED ON THE CPAP WHICH SHE IS USING VERY REGULARLY, WITH FULLFACE MASK AND PRESSURE OF 15 CM. SHE SLEEPING MUCH BETTER, WAKES UP DURING THE NIGHT AND ADDS MORE WATER FOR CONTINUED HUMIDIFICATION. DENIES ANY DAYTIME SLEEPINESS. SHE DOES HAVE SOME COUGH IN THE PAST FEW DAYS HAS SEEN HER PCP WHO HAS STARTED HER ON Z-NAYELY. [facility] Medical History Hematuria Bloated abdomen Breast cancer screening by mammogram Nocturnal hypoxemia due to obesity WILMER (obstructive sleep apnea) Morbid obesity Obesities, morbid Annual physical exam Obstructive sleep apnea hypopnea, severe Nasal congestion Hypertension Hypersomnia Hematuria Surgical History Previous section Family History Mother Lung cancer Father COPD (chronic obstructive pulmonary disease) Myocardial infarct Alcohol abuse Brother Alcohol abuse Social History Housing: House Alcohol intake: never Patient Tobacco Use Status: Never used Tobacco Tobacco use type: Cigarette e-Cigarette/Vaping Use: Never Used Second Hand Smoke Exposure: No 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al status: employed Cognitive needs: No Hearing needs: No Vision needs: Yes Review of Systems Const All systems reviewed & are unremarkable except as noted in HPI and below Reports snoring Eyes Reports no additional complaints ENT Reports nasal congestion (Intermittent, mild) Card Denies chest pain, Denies irregular heart rhythm and Denies leg edema Resp Denies cough, Reports snoring and Denies wheezing GI Reports no additional complaints Reports nocturia Musc Reports no additional complaints Skin/Breast Reports system reviewed and no additional complaints, except as documented Neuro Reports no additional complaints Psych Reports no additional complaints Endo Reports no additional complaints Daniel/Lymph Reports no additional complaints Aller/Immun Denies wheezing Physical Exam Vital Signs: Last Vital Signs Pulse 69 06/16/23 15:17 BP 122/90 H 06/16/23 15:17 Pulse Ox 96 06/16/23 15:17 Oxygen Delivery Method Room Air 06/16/23 15:17 BMI result Body Mass Index 44.6 Const General: healthy appearing (Except for being overweight), comfortable, no acute distress, alert and awake Orientation/consciousness: patient oriented x3 HEENT Head: Yes normal to inspection General nose exam: No nasal polyps present and No nasal discharge present Face and sinus: Yes sinuses nontender Mouth: oropharynx normal Throat: No posterior oropharynx normal (Oropharynx is crowded, Mallampati class 4) Eyes General: appearance normal, both eyes and all related structures Neck Neck: Yes normal visual inspection, Yes no lymphadenopathy, Yes trachea midline, Yes no JVD and Yes other (Neck size 17 in) Thyroid: Thyroid normal Chest Chest palpation & inspection: normal inspection of the chest, normal palpation of entire chest wall and no tenderness Resp Effort & Inspection: normal respiratory effort Auscultation: clear to auscultation bilaterally, no crackles, no rhonchi and no wheezes Percussion: percussion normal Cardio Palpation: normal PMI Rate: regular rate Rhythm: regular rhythm Heart sounds: no gallops and no murmurs Peripheral pulses: Peripheral pulses 2+ throughout GI Palpation (GI): Soft to palpation, nontender, No hepatosplenomegaly present, no masses and Other GI palpation findings present (Abdomen is moderately obese and protuberant) Auscultation: normal bowel sounds Back/Spine/Pelvis Thoracic/Lumbar Spine: thoracic and lumbar spine normal to inspection Skin General skin exam: no rashes or lesions noted Neuro General: patient oriented x3 and no focal motor deficits Cranial nerves: Yes CN's II-XII intact bilaterally Extrem General: Yes normal to inspection, Yes no clubbing, cyanosis or edema and Yes no calf tenderness Psych Appearance: grossly normal and well kempt Speech and movement: Normal speech and movement present Results Reviewed Results Reviewed: COMPLIANCE REPORT FOR THE LAST 30 NIGHTS IS REVIEWED SHE HAS USED 30/30 NIGHTS, 100% AVERAGE USE IT PER NIGHT 9 HOURS 3 MINUTES WHICH IS EXCELLENT. THERE IS THE MODERATE AIR LEAK. RESIDUAL AHI ONLY 1.1 Assessment & Plan Assessment & Plan (1) Morbid obesity: Comment: Patient is morbidly obese, she is fully aware of this, SHE IS TRYING TO LOSE WEIGHT ON HER OWN AND HAS LOST A FEW LB SINCE HER LAST VISIT SHE DOES KEEP TRACK OF DAILY WALKING AND ALSO DIETARY INTAKE. Code(s): E66.01 - Morbid (severe) obesity due to excess calories Plan: I DID TALK TO HER ABOUT CUTTING DOWN THE PORTIONS OF THE FOOD, AND CONTINUE TO WALK DAILY WALKING. (2) WILMER (obstructive sleep apnea): Comment: Patient has severe obstructive sleep apnea accompanied with nocturnal hypoxemia. CPAP titration corrected the obstructive events as well as hypoxemia with pressure of 15 cm. PATIENT HAS BEEN USING THE NEW CPAP DEVICE REGULARLY, AND BENEFITING. COMPLIANCE IS GOOD. Code(s): G47.33 - Obstructive sleep apnea (adult) (pediatric) Plan: COMMENDED FOR GOOD COMPLIANCE AND ADVISED TO CONTINUE USING IT REGULARLY AT NIGHT (3) Nocturnal hypoxemia due to obesity: Comment: She did have nocturnal hypoxemia but as noted above it was corrected with the use of CPAP therapy. So does not need any nocturnal oxygen supplementation. Code(s): E66.9 - Obesity, unspecified; G47.36 - Sleep related hypoventilation in conditions classified elsewhere Plan: as above Coding Level of Care Code Est Pt Level 3 (69697) Diagnoses Morbid obesity E66.01 WILMER (obstructive sleep apnea) G47.33 Nocturnal hypoxemia due to obesity E66.9; G47.36
== END 2023-06-16 15:35 | disposition home or self-care (01) ==
PROVIDERS: PCP Internal Medicine; Visit Provider Internal Medicine
DX: E66.01 Morbid (severe) obesity due to excess calories (principal); G47.33 Obstructive sleep apnea (adult) (pediatric); E66.9 Obesity, unspecified; G47.36 Sleep related hypoventilation in conditions classified elsewhere
CPT/HCPCS: 99213

== ENCOUNTER → 2023-06-16 15:10 | Outpatient (BNVA) | payer BC, SELFPAY | PROVIDERS: PCP Internal Medicine; Visit Provider Internal Medicine ==

== ENCOUNTER 2023-07-01 07:52 | Outpatient (AMB) | payer BC, SELFPAY ==
[2023-07-01 07:55] VITALS: BMI 44.6
--- NOTE | 2023-07-01 07:55 | A.OFFVIS_ITS ---
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 Complaining of urinary frequency and blood when wiping, the patient is unsure of the origin whether it is from the bladder or vagina Last Pap/HPV was many years ago Last Mammogram was in 09/09 BI-RADS 2 Last Colonoscopy was 5 years ago, the recommendation was to repeat in 5 years according to the patient [facility] Medical History Hematuria Bloated abdomen Breast cancer screening by mammogram Nocturnal hypoxemia due to obesity WILMER (obstructive sleep apnea) Morbid obesity Obesities, morbid Annual physical exam Obstructive sleep apnea hypopnea, severe Nasal congestion Hypertension Hypersomnia Hematuria Surgical History Previous section Family History Mother Lung cancer Father COPD (chronic obstructive pulmonary disease) Myocardial infarct Alcohol abuse Brother Alcohol abuse Social History Household Members: Spouse Housing: House Alcohol intake: never Patient Tobacco Use Status: Never used Tobacco Tobacco use type: Cigarette e-Cigarette/Vaping Use: Never Used Second Hand Smoke Exposure: No 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al status: employed 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 Sexually active: Yes Sexual orientation: Straight/Heterosexual Gender identity: Female Cognitive needs: No Hearing needs: No Vision needs: Yes Female Reproductive History Menstrual Total pregnancies: 3 (one still born) Full term: 2 Date of Mammogram: 08/26/22 Review of Systems Const All systems reviewed & are unremarkable except as noted in HPI and below Card Reports as per HPI Resp Reports as per HPI GI Reports as per HPI and Reports no additional complaints Reports as per HPI Physical Exam Vital Signs: BMI result Body Mass Index 44.6 Const General: cooperative, healthy appearing and comfortable Chest Chest palpation & inspection: normal inspection of the chest and normal palpation of entire chest wall Breast/axilla inspection: normal inspection of the breasts and normal inspection of the axillae Breast/axilla palpation: normal palpation of the breasts, normal palpation of the axillae and no axillary lymphadenopathy Resp Effort & Inspection: normal respiratory effort Auscultation: clear to auscultation bilaterally Percussion: percussion normal Cardio Palpation: normal PMI Rate: regular rate Rhythm: regular rhythm Heart sounds: no murmurs and no rubs Peripheral pulses: Peripheral pulses 2+ throughout GI Inspection: Yes normal to inspection Palpation (GI): Soft to palpation, nontender, no guarding, not rigid and No hepatosplenomegaly present Percussion: Yes normal to percussion Auscultation: normal bowel sounds Rectal Exam - Female: deferred General: Yes bladder normal to palpation External Female Exam: No lesion Speculum Exam - Vagina: normal appearance of the vagina, normal palpation, normal vaginal discharge and not erythematous Speculum Exam - Cervix: normal appearance of the cervix and normal palpation Bimanual exam- vagina & uterus: normal bimanual exam, normal palpation, uterine size normal, bladder normal to palpation, consistency normal and normal palpation Bimanual Exam- Adnexa, other: normal adnexae, no masses and no tenderness Assessment & Plan Assessment & Plan (1) Well woman exam: Code(s): Z01.419 - Encounter for gynecological examination (general) (routine) without abnormal findings Plan: Co testing done. Counseled the patient about the recommended dietary allowance of 1200 mg of Calcium & 600 IU of vitamin D. Instructions given to patient to schedule next screening Mammogram in 09/11. The patient was instructed to perform monthly self-breast exams and schedule annual exam in a year. All questions answered and the patient verbalized understanding. (2) Postmenopausal bleeding: Code(s): N95.0 - Postmenopausal bleeding Plan: Discussed with the patient the differential diagnosis of post menopausal bleeding with normal pelvic exam including but not limited to, endometrial hyperplasia, cancer, polyps and other causes; co testing done, recommended ultrasound to measure the endometrial stripe; discussed with the patient that if the endometrial thickness is 4 mm or less the negative predictive value of endometrial pathology is 99%, otherwise If endometrial thickness is more than 4 mm will proceed with endometrial sampling versus hysteroscopy D&C polypectomy depending on the ultrasound findings. Instructed the patient to schedule an ultrasound follow-up appointment in 2 weeks. All questions answered, the patient verbalized understanding and agreed with the plan. (3) Microscopic hematuria: Code(s): R31.29 - Other microscopic hematuria Plan: Urine dip showed microscopic hematuria, urine culture sent. Will treat with Macrobid 100 mg p.o. b.i.d. for 5 days and repeat urine dip next visit. If there is evidence of persistent microscopic hematuria will proceed with CT scan of abdomen and pelvis and urology referral, all questions answered, the patient verbalized understanding Orders: Orders US pelvic and transvaginal Today N95.0 - Postmenopausal bleeding Coding Level of Care Code Est Pt Level 3 (07684) Diagnoses Well woman exam Z01.419 Postmenopausal bleeding N95.0 Microscopic hematuria R31.29
== END 2023-07-01 08:33 | disposition home or self-care (01) ==
PROVIDERS: PCP Internal Medicine; Visit Provider Obstetrics & Gynecology
DX: N95.0 Postmenopausal bleeding (principal); R31.29 Other microscopic hematuria
CPT/HCPCS: 99213

== ENCOUNTER 2023-07-01 07:52 | Outpatient (REF) | payer BC, SELFPAY ==
[2023-07-06 23:14] LABS: HPV mRNA E6/E7 rflx Not Detected (Not Detected)
== END 2023-07-01 07:53 | disposition home or self-care (01) ==
LOC: HO.LNP 07:52
PROVIDERS: PCP Internal Medicine; Visit Provider Obstetrics & Gynecology
DX: Z01.419 Encounter for gynecological examination (general) (routine) without abnormal findings (principal); Z11.51 Encounter for screening for human papillomavirus (HPV); R31.29 Other microscopic hematuria; N95.0 Postmenopausal bleeding
CPT/HCPCS: 81002; 87086; 87624; 88142

== ENCOUNTER 2023-07-08 12:59 | Outpatient (REF) | payer BC, SELFPAY ==
--- NOTE | ~2023-07-08 | US_ITS ---
EXAM: Pelvic Ultrasound CLINICAL INDICATION: Postmenopausal bleeding COMPARISON: None available TECHNIQUE: The pelvis was evaluated using transabdominal and transvaginal imaging. Today's examination is limited secondary to patient body habitus. FINDINGS: The uterus measures 10.1 x 5.3 x 6.3 cm in longitudinal by AP by transverse dimension. The endometrial stripe is thickened measuring 9 mm. The lower uterine segment is somewhat echogenic and hyperemic although a well-defined mass is not identified. There is a small amount of fluid within the cervical canal. Neither ovary was clearly visualized. There are no abnormal adnexal masses. There is no free fluid in the pelvis. US/US pelvic and transvaginal IMPRESSION: 1. Abnormally thickened endometrium in a postmenopausal patient. Direct inspection/biopsy recommended. 2. The lower uterine segment is somewhat echogenic and hyperemic although a well-defined mass is not identified. This is a nonspecific finding. Direct inspection/biopsy may be warranted. 3. Small amount of fluid within the cervical canal. 4. Neither ovary clearly visualized.
== END 2023-07-08 13:00 | disposition home or self-care (01) ==
LOC: HO.US 12:59
PROVIDERS: PCP Internal Medicine; Visit Provider Obstetrics & Gynecology
DX: N95.0 Postmenopausal bleeding (principal)
CPT/HCPCS: 76830; 76856

== ENCOUNTER 2023-07-16 15:34 | Outpatient (REF) | payer BC, SELFPAY | END 2023-07-16 15:35 | disposition home or self-care (01) | LOC: HO.LNP 15:34 | PROVIDERS: PCP Internal Medicine; Visit Provider Obstetrics & Gynecology | DX: R31.29 Other microscopic hematuria (principal); N95.0 Postmenopausal bleeding | CPT/HCPCS: 58100; 81002; 88305; 88341; 88342 ==

== ENCOUNTER 2023-07-22 13:48 | Outpatient (AMB) | payer BC, SELFPAY ==
--- NOTE | 2023-07-22 13:48 | A.OFFVIS_ITS ---
Intake Intake Visit Reasons: EMB results Allergies No Known Allergies Allergy (Verified 07/01/23 07:59) HPI HPI Comments History of Present Illness Details The patient is scheduled tele health visit after endometrial biopsy. The patient has no complaints, no vaginal bleeding, no feverishness chills or abdominal pain. Endometrial biopsy pathology showed the following: Endometrial adenocarcinoma, endometrioid type, with squamous morulae, FIGO grade 1 PFSH Medical History Hematuria Bloated abdomen Breast cancer screening by mammogram Nocturnal hypoxemia due to obesity WILMER (obstructive sleep apnea) Morbid obesity Obesities, morbid Annual physical exam Obstructive sleep apnea hypopnea, severe Nasal congestion Hypertension Hypersomnia Hematuria Surgical History Previous section Family History Mother Lung cancer Father COPD (chronic obstructive pulmonary disease) Myocardial infarct Alcohol abuse Brother Alcohol abuse Social History Household Members: Spouse Housing: House Alcohol intake: never Patient Tobacco Use Status: Never used Tobacco Tobacco use type: Cigarette e-Cigarette/Vaping Use: Never Used Second Hand Smoke Exposure: No 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al status: employed 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 Sexual orientation: Straight/Heterosexual Gender identity: Female Cognitive needs: No Hearing needs: No Vision needs: Yes Review of Systems Const All systems reviewed & are unremarkable except as noted in HPI and below Reports as per HPI and Reports no additional complaints GI Reports no additional complaints Reports no additional complaints Assessment & Plan Assessment & Plan (1) Endometrial carcinoma: Comment: Adenocarcinoma FIGO grade 1 Code(s): C54.1 - Malignant neoplasm of endometrium Plan: Discussed with the patient the pathology results, the recommended surgical staging procedure, and the prognosis. The patient was referred to [facility] for further management. All questions answered, the patient verbalized understanding. Appointment scheduled at [facility] on 07/30/23 at 10:[address] Marin, the patient is aware. I spent a total of 10 minutes reviewing the chart, talking to the patient via for and documenting in the medical record. Orders: Referrals Gynecologic Oncology Referral C54.1 - Malignant neoplasm of endometrium Telehealth Telehealth Location of provider rendering services: practice address Location of patient: address on file Patient Identification confirmed using: Name, : Yes Telehealth method: voice only Patient verbally consented to treatment: Yes Patient verbally consented to billing insurance company: Yes Patient informed of any privacy concerns related to visit: Yes Coding Level of Care Code Tele Est Pt Level 1 (28708) Diagnoses Endometrial carcinoma C54.1
== END 2023-07-22 14:21 | disposition home or self-care (01) ==
LOC: HO.HWS 13:48
PROVIDERS: PCP Internal Medicine; Visit Provider Obstetrics & Gynecology
DX: C54.1 Malignant neoplasm of endometrium (principal)
CPT/HCPCS: 99211

== ENCOUNTER → 2023-07-22 13:48 | Outpatient (BNVA) | payer BC, SELFPAY | PROVIDERS: PCP Internal Medicine; Visit Provider Obstetrics & Gynecology ==

== ENCOUNTER 2023-09-01 07:47 | Outpatient (REF) | payer BC, SELFPAY | END 2023-09-01 07:48 | disposition home or self-care (01) | LOC: HO.MAMMO 07:47 | PROVIDERS: PCP Internal Medicine; Visit Provider Internal Medicine | DX: Z12.31 Encounter for screening mammogram for malignant neoplasm of breast (principal) | CPT/HCPCS: 77063; 77067 ==

== ENCOUNTER → 2023-09-01 08:15 | Outpatient (BNV) | payer BC, SELFPAY | PROVIDERS: PCP Internal Medicine; Visit Provider Radiology Diagnostic Radiology | DX: Z12.31 Encounter for screening mammogram for malignant neoplasm of breast (principal) | CPT/HCPCS: 77063; 77067 ==

== ENCOUNTER 2023-10-14 09:14 | Outpatient (AMB) | payer BC, SELFPAY ==
[2023-10-14 09:28] VITALS: BP 120/92; PULSE 68; O2SAT 96; BMI 44.6
--- NOTE | 2023-10-14 09:28 | MHC.OFFVIS ---
Vital Signs 10/14/23 09:28 Height 5 ft 1 in Weight 235 lb 14.314 oz BMI 44.6 BP 120/92 H Blood Pressure Location Lt brachial Position Sitting Pulse 68 Pulse Source Pulse Oximeter Pulse Oximetry (%) 96 Oxygen Delivery Method Room Air Intake Visit Reasons: wilmer Intake Note: pt is here for follow up and states she is doing well with cpap but had hysterectomy in August. 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 She is using her CPAP very regularly every night, and sleeps well She [place] about 10 [place] when she did not use the CPAP. She has undergone total hysterectomy for stage I uterine cancer, . Recovered well Has not lost much weight. [facility], [facility] Medical History Hematuria Bloated abdomen Breast cancer screening by mammogram Nocturnal hypoxemia due to obesity WILMER (obstructive sleep apnea) Morbid obesity Obesities, morbid Annual physical exam Obstructive sleep apnea hypopnea, severe Nasal congestion Hypertension Hypersomnia Hematuria Surgical History Previous section Family History Mother Lung cancer Father COPD (chronic obstructive pulmonary disease) Myocardial infarct Alcohol abuse Brother Alcohol abuse Social History Household Members: Spouse Housing: House Alcohol intake: never Patient Tobacco Use Status: Never used Tobacco Tobacco use type: Cigarette e-Cigarette/Vaping Use: Never Used Second Hand Smoke Exposure: No 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al status: employed 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 Sexual orientation: Straight/Heterosexual Gender identity: Female Cognitive needs: No Hearing needs: No Vision needs: Yes Review of Systems Const All systems reviewed & are unremarkable except as noted in HPI and below Reports snoring Eyes Reports no additional complaints ENT Reports nasal congestion (Intermittent, mild) Card Denies chest pain, Denies irregular heart rhythm and Denies leg edema Resp Denies cough, Reports snoring and Denies wheezing GI Reports no additional complaints Reports nocturia Musc Reports no additional complaints Skin/Breast Reports system reviewed and no additional complaints, except as documented Neuro Reports no additional complaints Psych Reports no additional complaints Endo Reports no additional complaints Daniel/Lymph Reports no additional complaints Aller/Immun Denies wheezing Physical Exam Vital Signs: Last Vital Signs Pulse 68 10/14/23 09:28 BP 120/92 H 10/14/23 09:28 Pulse Ox 96 10/14/23 09:28 Oxygen Delivery Method Room Air 10/14/23 09:28 BMI result Body Mass Index 44.6 Const General: healthy appearing (Except for being overweight), comfortable, no acute distress, alert and awake Orientation/consciousness: patient oriented x3 HEENT Head: Yes normal to inspection General nose exam: No nasal polyps present and No nasal discharge present Face and sinus: Yes sinuses nontender Mouth: oropharynx normal Throat: No posterior oropharynx normal (Oropharynx is crowded, Mallampati class 4) Eyes General: appearance normal, both eyes and all related structures Neck Neck: Yes normal visual inspection, Yes no lymphadenopathy, Yes trachea midline, Yes no JVD and Yes other (Neck size 17 in) Thyroid: Thyroid normal Chest Chest palpation & inspection: normal inspection of the chest, normal palpation of entire chest wall and no tenderness Resp Effort & Inspection: normal respiratory effort Auscultation: clear to auscultation bilaterally, no crackles, no rhonchi and no wheezes Percussion: percussion normal Cardio Palpation: normal PMI Rate: regular rate Rhythm: regular rhythm Heart sounds: no gallops and no murmurs Peripheral pulses: Peripheral pulses 2+ throughout GI Palpation (GI): Soft to palpation, nontender, No hepatosplenomegaly present, no masses and Other GI palpation findings present (Abdomen is moderately obese and protuberant) Auscultation: normal bowel sounds Back/Spine/Pelvis Thoracic/Lumbar Spine: thoracic and lumbar spine normal to inspection Skin General skin exam: no rashes or lesions noted Neuro General: patient oriented x3 and no focal motor deficits Cranial nerves: Yes CN's II-XII intact bilaterally Extrem General: Yes normal to inspection, Yes no clubbing, cyanosis or edema and Yes no calf tenderness Psych Appearance: grossly normal and well kempt Speech and movement: Normal speech and movement present Results Reviewed Results Reviewed: Compliance report is reviewed. Used / nights., 57% but non usage for bout 30 nights was due to her vacationing. There is moderate air leak, residual AHI 1.1 Assessment & Plan Assessment & Plan (1) Morbid obesity: Comment: Patient is morbidly obese, she is fully aware of this, SHE IS TRYING TO LOSE WEIGHT ON HER OWN AND HAS LOST A FEW LB SINCE HER LAST VISIT SHE DOES KEEP TRACK OF DAILY WALKING AND ALSO DIETARY INTAKE. Code(s): E66.01 - Morbid (severe) obesity due to excess calories Category: Medical Plan: Discussed about her weight. She needs to watch her diet. And start walking on a daily basis. (2) WILMER (obstructive sleep apnea): Comment: Patient has severe obstructive sleep apnea accompanied with nocturnal hypoxemia. CPAP titration corrected the obstructive events as well as hypoxemia with pressure of 15 cm. PATIENT HAS BEEN USING THE NEW CPAP DEVICE REGULARLY, AND BENEFITING. COMPLIANCE IS GOOD. Code(s): G47.33 - Obstructive sleep apnea (adult) (pediatric) Category: Medical Plan: .Commended for good compliance Recommended to tighten the straps, so that she can minimize air leak. Continue to use the CPAP with fullface mask and pressure of 14 cm, regularly. Will be rechecked every 6 months. Coding Level of Care Code Est Pt Level 3 (34116) Diagnoses Morbid obesity E66.01 WILMER (obstructive sleep apnea) G47.33
== END 2023-10-14 09:44 | disposition home or self-care (01) ==
PROVIDERS: PCP Internal Medicine; Visit Provider Internal Medicine
DX: E66.01 Morbid (severe) obesity due to excess calories (principal); G47.33 Obstructive sleep apnea (adult) (pediatric)
CPT/HCPCS: 99213

== ENCOUNTER → 2023-10-14 09:14 | Outpatient (BNVA) | payer BC, SELFPAY | PROVIDERS: PCP Internal Medicine; Visit Provider Internal Medicine ==

== ENCOUNTER 2023-12-09 11:13 | Outpatient (REF) | payer BC, SELFPAY ==
[2023-12-09 11:31] LABS: MANUAL DIFF FLAG NO
[2023-12-09 12:11] LABS: Basophils Percent Auto 0.6 % (0-2); Eosinophils Absolute Auto 0.1 X10*3/uL (0.0-0.4); Eosinophils Percent Auto 1.1 % (0-4); Hematocrit 41.3 % (37.0-47.0); Hemoglobin 13.7 g/dl (12.0-16.0); Imm Gran Abs Auto 0.01 X10*3/uL (0.00-0.03); Imm Gran Pct Auto 0.2 % (0.0-0.4); Lymphocytes Absolute Auto 1.6 X10*3/uL (1.2-4.9); Lymphocytes Percent Auto 29.5 % (20-40); Mean Corpuscular HGB Conc 33.2 g/dl (31.0-35.0); Mean Corpuscular Hemoglobin 29.6 pg (27.0-33.0); Mean Corpuscular Volume 89.2 fL (80.0-98.0); Mean Platelet Volume 9.6 fL (9.4-12.3); Monocytes Absolute Auto 0.5 X10*3/uL (0.1-1.2); Monocytes Percent Auto 10.2 % (2-11); Neutrophils Absolute Auto 3.1 x10*3/uL (2.0-8.3); Neutrophils Percent Auto 58.4 % (45-73); Platelet Count 227 X10*3/uL (160-400); Red Blood Count 4.63 X10*6/uL (4.20-5.50); Red Cell Distribution Width 12.6 % (11.0-16.0); White Blood Count 5.3 X10*3/uL (4.8-10.8)
[2023-12-09 13:18] LABS: Folate 9.1 ng/mL (> or = 4.0); Vitamin B12 314 pg/mL (200-900)
[2023-12-09 15:06] LABS: Alanine Aminotransferase 26 U/L (0-31); Albumin Level 4.1 g/dL (3.5-5.0); Alkaline Phosphatase 70 U/L (39-117); Anion Gap 12 (12-20); Aspartate Amino Transferase 24 U/L (5-31); Bilirubin Total 0.6 mg/dL (0.0-1.0); Blood Urea Nitrogen 15 mg/dL (9-16); Calcium 9.4 mg/dL (8.4-10.2); Carbon Dioxide 30 mmol/L (22-29); Chloride 106 mmol/L (96-108); Cholesterol 157 mg/dL (<200); Estimated Glomerular Filt Rate > 60; Glucose Random 85 mg/dL (60-115); HDL Cholesterol 68 mg/dL (>40); LDL Cholesterol Calculated 73 mg/dL (<100); Potassium 4.1 mmol/L (3.3-5.1); Sodium 144 mmol/L (135-145); Total Protein 6.8 g/dL (6.5-8.0); Triglycerides 83 mg/dL (<150)
[2023-12-09 15:09] LABS: Free T4 (Free Thyroxine) 0.84 ng/dL (0.71-1.85); Thyroid Stimulating Hormone 1.48 uIU/mL (0.32-4.0)
== END 2023-12-09 11:14 | disposition home or self-care (01) ==
LOC: HO.LAB 11:13
PROVIDERS: PCP Internal Medicine; Visit Provider Internal Medicine
DX: K21.9 Gastro-esophageal reflux disease without esophagitis (principal); E78.00 Pure hypercholesterolemia, unspecified
CPT/HCPCS: 36415; 80053; 80061; 82607; 82746; 84439; 84443; 85025

== ENCOUNTER 2023-12-16 08:22 | Outpatient (AMB) | payer BC, SELFPAY ==
[2023-12-16 08:32] VITALS: BP 152/92; PULSE 79; O2SAT 98; BMI 44.8
--- NOTE | 2023-12-16 08:32 | MHC.PC.OV ---
Vital Signs 12/16/23 08:32 Height 5 ft 1 in Weight 237 lb BMI 44.8 BP 152/92 H Blood Pressure Location Lt brachial Position Sitting Pulse 79 Pulse Source Pulse Oximeter Pulse Oximetry (%) 98 Oxygen Delivery Method Room Air Intake Visit Reasons: Obstructive sleep apnea Allergies No Known Allergies Allergy (Verified 12/16/23 08:33) Tobacco use date assessed: 06/16/23 Dental Screening Dental Screen Date: 06/16/23 HPI Obstructive sleep apnea HPI Details 63-year-old morbidly obese female with a history of obstructive sleep apnea fatty liver GERD last seen in 06/09/2023. Patient is up-to-date with colonoscopy mammogram and Pap smear. Review of the notes has been follow-up with Pulmonary CPAP titrateion corrected and has been using the CPAP regularly more than 4 hours a night and benefits from this. Patient has a grade 1 endometrioid adenocarcinoma seeing Gynecology presenting with 6 months of postmenopausal bleeding standard treatment of hysterectomy bilateral salpingo-oophorectomy and staging. Seen in 08/08/2023 surgery was a week after feels hot flashes and [facility] Medical History Hematuria Bloated abdomen Breast cancer screening by mammogram Nocturnal hypoxemia due to obesity WILMER (obstructive sleep apnea) Morbid obesity Obesities, morbid Annual physical exam Obstructive sleep apnea hypopnea, severe Nasal congestion Hypertension Hypersomnia Hematuria Surgical History Previous section Family History Mother Lung cancer Father COPD (chronic obstructive pulmonary disease) Myocardial infarct Alcohol abuse Brother Alcohol abuse Social History Household Members: Spouse Housing: House Alcohol intake: never Patient Tobacco Use Status: Never used Tobacco Tobacco use type: Cigarette e-Cigarette/Vaping Use: Never Used Second Hand Smoke Exposure: No 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al status: employed 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 1. Little interest or pleasure in doing things: not at all 2. Feeling down, depressed, or hopeless: not at all 3. Trouble falling or staying asleep, or sleeping too much: not at all 4. Feeling tired or having little energy: not at all 5. Poor appetite or overeating: not at all 6. Feeling bad about yourself - or that you are a failure or have let yourself or your family down: not at all 7. Trouble concentrating on things, such as reading the newspaper or watching television: not at all 8. Moving or speaking so slowly that other people could have noticed. Or the opposite - being so fidgety or restless that you have been moving around a lot more than usual: not at all 9. Thoughts that you would be better off or of hurting yourself in some way: not at all Total score: 0 Depression Screening Interpretation: Negative Depression Screening Done: Yes Source: Developed by Drs. Nino Jackson, Escobar Woodruff and colleagues, with an educational fidel from [employer]. Thrive Questionnaire Date Thrive assessed: 06/16/23 AUDIT C Alcohol Use Questionnaire (AUDIT-C) 1. How often do you have a drink containing alcohol?: Monthly or less 2. How many drinks containing alcohol do you have on a typical day when you are drinking?: 1 or 2 3. How often do you have six or more drinks on one occasion?: Never Total Score: 1 KYLER-7 AMB Questionnaire KYLER-7 Date KYLER - 7 assessed: 06/16/23 Source: Developed by Drs. Nino Jackson, Tami Martino, Escobar Del Rio and colleagues, with an educational fidel from [employer]. Physical exam (Primary Care) Vital Signs: Last Vital Signs Pulse 79 12/16/23 08:32 BP 152/92 H 12/16/23 08:32 Pulse Ox 98 12/16/23 08:32 Oxygen Delivery Method Room Air 12/16/23 08:32 BMI result Body Mass Index 44.8 Tobacco/Smoking Status: Tobacco use Status Tobacco use date assessed 06/16/23 12/16/23 08:38 Patient Tobacco Use Status Never used Tobacco 12/16/23 08:38 Tobacco use type Cigarette 12/16/23 08:38 e-Cigarette/Vaping Use Never Used 12/16/23 08:38 PHQ-9: PHQ-9 Score PHQ-9: Total score 0 12/16/23 08:38 Depression Screening Interpretation: Negative Thrive Assessment: Date of Thrive Assessment Date Thrive assessed 06/16/23 12/16/23 08:38 Const General: alert; No acute distress Eyes Conjunctivae: conjunctivae normal Resp Auscultation: clear to auscultation bilaterally Cardio Rate: regular rate Rhythm: regular rhythm GI Inspection: Yes normal to inspection Extrem General: Yes normal to inspection and No edema Assessment and Plan Assessment & Plan (1) Endometrial carcinoma: Comment: Adenocarcinoma FIGO grade 1 Code(s): C54.1 - Malignant neoplasm of endometrium Plan: Patient has seen the gynecology oncology and planned TAHBSO (2) GERD (gastroesophageal reflux disease): Comment: July 2022 Code(s): K21.9 - Gastro-esophageal reflux disease without esophagitis Plan: Avoid the foods that causes that usually spicy foods, tomato products, juices, coffee, soda and foods that your sensitive to. After eating do not lie down, allow 3-4 hours before in lie down. And keep the head of bed above 30 degrees to avoid the acid from going up. (3) WILMER (obstructive sleep apnea): Comment: Patient has severe obstructive sleep apnea accompanied with nocturnal hypoxemia. CPAP titration corrected the obstructive events as well as hypoxemia with pressure of 15 cm. PATIENT HAS BEEN USING THE NEW CPAP DEVICE REGULARLY, AND BENEFITING. COMPLIANCE IS GOOD. Code(s): G47.33 - Obstructive sleep apnea (adult) (pediatric) Plan: Patient has followed with Pulmonary and continue to use the CPAP more than 4 hours a night and benefits from this. (4) Morbid obesity: Comment: Patient is morbidly obese, she is fully aware of this, SHE IS TRYING TO LOSE WEIGHT ON HER OWN AND HAS LOST A FEW LB SINCE HER LAST VISIT SHE DOES KEEP TRACK OF DAILY WALKING AND ALSO DIETARY INTAKE. Code(s): E66.01 - Morbid (severe) obesity due to excess calories Plan: Patient has been trying to lose the weight. (5) Peripheral vascular disease: Code(s): I73.9 - Peripheral vascular disease, unspecified Medications: New compress.stocking,knee,reg,lrg As directed 20-30 mm HG 12 ea 0RF I73.9 - Peripheral vascular disease, unspecified Coding Level of Care Code Est Pt Level 4 (30422) Diagnoses Endometrial carcinoma C54.1 GERD (gastroesophageal reflux disease) K21.9 WILMER (obstructive sleep apnea) G47.33 Morbid obesity E66.01 Peripheral vascular disease I73.9
== END 2023-12-16 09:07 | disposition home or self-care (01) ==
PROVIDERS: PCP Internal Medicine; Visit Provider Internal Medicine
DX: I73.9 Peripheral vascular disease, unspecified (principal); C54.1 Malignant neoplasm of endometrium; E66.01 Morbid (severe) obesity due to excess calories; Z68.41 Body mass index [BMI] 40.0-44.9, adult; K21.9 Gastro-esophageal reflux disease without esophagitis; G47.33 Obstructive sleep apnea (adult) (pediatric)
CPT/HCPCS: 99214

== ENCOUNTER 2024-03-23 08:18 | Outpatient (AMB) | payer BC, SELFPAY ==
[2024-03-23 08:29] VITALS: BP 132/72; PULSE 73; O2SAT 98; BMI 45.7
--- NOTE | 2024-03-23 08:29 | A.OFFPC_ITS ---
Vital Signs 03/23/24 08:29 Height 5 ft 1 in Weight 242 lb BMI 45.7 BP 132/72 Blood Pressure Location Lt brachial Position Sitting Pulse 73 Pulse Source Pulse Oximeter Pulse Oximetry (%) 98 Oxygen Delivery Method Room Air Intake Visit Reasons: 3 mo fu uterine cancer, PVD Allergies No Known Allergies Allergy (Verified 03/23/24 08:30) Medication List - Last Reconciled 03/23/24 by Yanet Tinoco PA-C cholecalciferol (vitamin D3) 25 mcg PO DAILY compress.stocking,knee,reg,lrg As directed 20-30 mm HG [CPAP ] fluticasone propionate 50 mcg/actuation (Flonase Allergy Relief) 2 sprays intranasal DAILY ibuprofen 600 mg PO TID PRN omeprazole 20 mg PO DAILY [wrist Splint bilateral As directed] Tobacco use date assessed: 03/23/24 Dental Screening Dental Screen Date: 03/23/24 Did you have a dental visit in the last 12 months?: Yes Did you have a dental problem in the last 6 months where you did not have access to dental care?: No Was dental information given to patient?: Patient has dentist HPI 3 mo fu uterine cancer, PVD HPI Details 64-year-old morbidly obese female with p ast medical history of obstructive sleep apnea, endometrial carcinoma, fatty liver disease, GERD last seen 12/16/2023 coming in for follow up. Patient states she has been following with Dr. Alba status post hysterectomy for endometrial carcinoma. She was last seen this week and was determined to be in complete remission. She denies any leg swelling or pain but does stand for prolonged periods of time on her feet and does use compression stockings. She has been using her CPAP nightly and follows with pulmonology regularly. [facility] Medical History Hematuria Bloated abdomen Breast cancer screening by mammogram Nocturnal hypoxemia due to obesity WILMER (obstructive sleep apnea) Morbid obesity Obesities, morbid Annual physical exam Obstructive sleep apnea hypopnea, severe Nasal congestion Hypertension Hypersomnia Hematuria Surgical History Previous section Family History Mother Lung cancer Father COPD (chronic obstructive pulmonary disease) Myocardial infarct Alcohol abuse Brother Alcohol abuse Social History Household Members: Spouse Housing: House Alcohol intake: never Patient Tobacco Use Status: Never used Tobacco Tobacco use type: Cigarette e-Cigarette/Vaping Use: Never Used Second Hand Smoke Exposure: No 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al status: employed 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 1. Little interest or pleasure in doing things: not at all 2. Feeling down, depressed, or hopeless: not at all 3. Trouble falling or staying asleep, or sleeping too much: not at all 4. Feeling tired or having little energy: not at all 5. Poor appetite or overeating: not at all 6. Feeling bad about yourself - or that you are a failure or have let yourself or your family down: not at all 7. Trouble concentrating on things, such as reading the newspaper or watching television: not at all 8. Moving or speaking so slowly that other people could have noticed. Or the opposite - being so fidgety or restless that you have been moving around a lot more than usual: not at all 9. Thoughts that you would be better off or of hurting yourself in some way: not at all Total score: 0 Depression Screening Interpretation: Negative Depression Screening Done: Yes Source: Developed by Drs. Nino Jackson, Tami Martino, Escobar Del Rio and colleagues, with an educational fidel from [employer]. Thrive Questionnaire Date Thrive assessed: 03/23/24 I am a: Patient What is your living situation today?: I have a steady place to live Within the past 12 months, did the food you bought not last and you didn't have the money to get more?: Never true Within the past 12 months, did you worry whether your food would run out before you got money to buy more?: Never true Do you have trouble paying for medicines?: No Do you have trouble getting transportation to medical appointments?: No Do you have trouble paying your heating and electricity bill?: No Do you have trouble taking care of your child, family member or friend?: No Do you have trouble with day-to-day activities such as bathing, preparing meals, shopping, managing finances, etc.?: No Are you currently unemployed and looking for a job?: No Are you interested in more education?: No Currently or been in a relationship where the following occur: No concerns reported THRIVE Score: 0 AUDIT C Alcohol Use Questionnaire (AUDIT-C) 1. How often do you have a drink containing alcohol?: Monthly or less 2. How many drinks containing alcohol do you have on a typical day when you are drinking?: 1 or 2 3. How often do you have six or more drinks on one occasion?: Never Total Score: 1 KYLER-7 AMB Questionnaire KYLER-7 Date KYLER - 7 assessed: 03/23/24 Feeling nervous, anxious, or on edge: 0 = Not at all Not being able to stop or control worryin = Not at all Worrying too much about different things: 0 = Not at all Trouble relaxin = Not at all Being so restless that it is hard to sit still: 0 = Not at all Becoming easily annoyed or irritable: 0 = Not at all Feeling afraid as if something awful might happen: 0 = Not at all Total KYLER-7 score (0-4 normal; 5-9 mild; 10-14 moderate; 15-21 severe): 0 Source: Developed by Drs. Nino Jackson, Tami Martino, Escobar Del Rio and colleagues, with an educational fidel from [employer]. Review of Systems Const Denies body aches, Denies chills, Denies fever(s), Denies headache(s) and Denies poor appetite Eyes Reports no additional complaints ENT Denies dizziness and Denies headache(s) Card Denies chest pain, Denies syncope, Denies edema, Denies irregular heart rhythm, Denies lightheadedness and Denies dyspnea Resp Denies cough and Denies dyspnea GI Denies abdominal pain, Denies constipation, Denies diarrhea, Denies nausea and Denies vomiting Reports no additional complaints Musc Reports no additional complaints and Denies abnormal gait Skin/Breast Reports system reviewed and no additional complaints, except as documented Neuro Denies abnormal gait, Denies dizziness, Denies syncope and Denies headache(s) Psych Reports no additional complaints Physical exam (Primary Care) Vital Signs: Last Vital Signs Pulse 73 03/23/24 08:29 BP 132/72 03/23/24 08:29 Pulse Ox 98 03/23/24 08:29 Oxygen Delivery Method Room Air 03/23/24 08:29 BMI result Body Mass Index 45.7 Tobacco/Smoking Status: Tobacco use Status Tobacco use date assessed 03/23/24 03/23/24 08:35 Patient Tobacco Use Status Never used Tobacco 03/23/24 08:35 Tobacco use type Cigarette 03/23/24 08:35 e-Cigarette/Vaping Use Never Used 03/23/24 08:35 PHQ-9: PHQ-9 Score PHQ-9: Total score 0 03/23/24 08:35 Depression Screening Interpretation: Negative Thrive Assessment: Date of Thrive Assessment Date Thrive assessed 03/23/24 03/23/24 08:35 Currently or been in a relationship where the following occur: No concerns reported Const General: cooperative, healthy appearing, comfortable and no acute distress Orientation/consciousness: patient oriented x3 HENMT Head: Yes normocephalic Ears: hearing grossly normal bilaterally General nose exam: Normal external nose present Eyes General: appearance normal, both eyes and all related structures Conjunctivae: conjunctivae normal Neck Neck: Yes full ROM and Yes no lymphadenopathy Resp Effort & Inspection: normal respiratory effort Auscultation: clear to auscultation bilaterally, no crackles, no rales, no rhonchi and no wheezes Cardio Rate: regular rate Rhythm: regular rhythm Skin General skin exam: no rashes or lesions noted Neuro General: patient oriented x3 Gait exam (Neuro): Normal gait present Extrem General: Yes normal to inspection, Yes full ROM and No edema Psych Affect: normal affect Attitude: cooperative Insight: Good insight present (Psych) Judgement: Good judgement present (Psych) Coding Level of Care Code Est Pt Level 3 (98123) Diagnoses Peripheral vascular disease I73.9 Endometrial carcinoma C54.1 GERD (gastroesophageal reflux disease) K21.9 WILMER (obstructive sleep apnea) G47.33 Morbid obesity E66.01 Assessment & Plan Assessment & Plan (1) Peripheral vascular disease: Code(s): I73.9 - Peripheral vascular disease, unspecified Category: Medical Plan: Elevate the legs as needed, wear compression stockings. Denies any symptoms of pain or swelling at this time. On exam no edema, no overlying erythema or skin changes. (2) Endometrial carcinoma: Comment: Adenocarcinoma FIGO grade 1 Code(s): C54.1 - Malignant neoplasm of endometrium Category: Medical Plan: Following with Dr. Alba through [facility] status post hysterectomy. Recently seen this week we will request these notes patient was deemed to be in full remission. (3) GERD (gastroesophageal reflux disease): Comment: July 2022 Code(s): K21.9 - Gastro-esophageal reflux disease without esophagitis Category: Medical Plan: Avoid trigger foods such as citrus, tomato products, soda, caffeine, spicy foods and other foods that may be irritating to your stomach. Avoid laying flat 3-4 hours after eating and elevate the head of the bed 30 degrees to prevent acid from moving into the esophagus. (4) WILMER (obstructive sleep apnea): Comment: Patient has severe obstructive sleep apnea accompanied with nocturnal hypoxemia. CPAP titration corrected the obstructive events as well as hypoxemia with pressure of 15 cm. PATIENT HAS BEEN USING THE NEW CPAP DEVICE REGULARLY, AND BENEFITING. COMPLIANCE IS GOOD. Code(s): G47.33 - Obstructive sleep apnea (adult) (pediatric) Category: Medical Plan: Uses CPAP faithfully at least 4 hours a night and benefits from this therapy. CPAP scores are between 95 and 99 nightly. (5) Morbid obesity: Comment: Patient is morbidly obese, she is fully aware of this, SHE IS TRYING TO LOSE WEIGHT ON HER OWN AND HAS LOST A FEW LB SINCE HER LAST VISIT SHE DOES KEEP TRACK OF DAILY WALKING AND ALSO DIETARY INTAKE. Code(s): E66.01 - Morbid (severe) obesity due to excess calories Category: Medical Plan: Healthy diet and regular exercise is encouraged. Plan This note was constructed using voice recognition software. While every effort has been made to ensure accuracy and lunch counter manager, still areas may have been included sometimes these areas may affect the content or meeting of the given symptoms. Total time spent caring for the patient today was 30 minutes. This includes time spent before the visit reviewing the chart, time spent during the visit, and time spent after the visit and documentation. Medications: Refilled fluticasone propionate 50 mcg/actuation (Flonase Allergy Relief) administer into each nostril 2 sprays intranasal DAILY 16 grams 2RF R09.81 - Nasal congestion
== END 2024-03-23 09:01 | disposition home or self-care (01) ==
PROVIDERS: PCP Internal Medicine
DX: I73.9 Peripheral vascular disease, unspecified (principal); C54.1 Malignant neoplasm of endometrium; E66.01 Morbid (severe) obesity due to excess calories; Z68.42 Body mass index [BMI] 45.0-49.9, adult; K21.9 Gastro-esophageal reflux disease without esophagitis; G47.33 Obstructive sleep apnea (adult) (pediatric)

== ENCOUNTER 2024-04-26 09:15 | Outpatient (AMB) | payer BC, SELFPAY ==
[2024-04-26 09:30] VITALS: BP 140/90; PULSE 68; O2SAT 95; BMI 45.8
--- NOTE | 2024-04-26 09:30 | MHC.OFFVIS ---
Vital Signs 04/26/24 09:30 Height 5 ft 1 in Weight 242 lb 8.136 oz BMI 45.8 BP 140/90 H Blood Pressure Location Lt brachial Position Sitting Pulse 68 Pulse Source Pulse Oximeter Pulse Oximetry (%) 95 Oxygen Delivery Method Room Air Intake Visit Reasons: Obstructive sleep apnea Intake Note: pt is here for follow up and states she thinks she has a sinus infection, using cpap but this issue is affecting the usage. Clinical Systems Analyst Required: No Allergies No Known Allergies Allergy (Verified 04/26/24 09:49) Medication List - Last Reconciled 04/26/24 by Renetta Hernández MD cholecalciferol (vitamin D3) 25 mcg PO DAILY compress.stocking,knee,reg,lrg As directed 20-30 mm HG [CPAP ] fluticasone propionate 50 mcg/actuation (Flonase Allergy Relief) 2 sprays intranasal DAILY ibuprofen 600 mg PO TID PRN omeprazole 20 mg PO DAILY PRN [wrist Splint bilateral As directed] HPI HPI Obstructive sleep apnea: Details: THIS 64 YEARS OLD VERY PLEASANT FEMALE WHO IS GROSSLY OBESE AND DIAGNOSIS OF OBSTRUCTIVE SLEEP APNEA. COMES TODAY FOR HER 6 MONTHS FOLLOW-UP. HER USAGE OF CPAP HAS BEEN VERY REGULAR AND AT LEAST FOR 6-8 HOURS PER NIGHT. SHE WORKS QUITE ACTIVELY WHOLE DAY. CLAIMS THAT SHE DOES NOT EAT MUCH. HOWEVER HER WEIGHT HAS NOT CHANGED. CURRENTLY FOR THE LAST 1 WEEK SHE IS HAVING PROBLEM WITH USE OF CPAP DUE TO NASAL CONGESTION SOME DISCOMFORT IN THE SINUSES POSTNASAL DISCHARGE AND YELLOWISH PHLEGM. SHE HAS STARTED USING FLONASE AND ALSO TAKES STEAM INHALATIONS WHEN SHOWERING IN THE MORNING, BUT IS NOT GETTING BETTER. [facility] Medical History (Updated 04/26/24 @ 09:55 by Renetta Hernández MD) Rhinosinusitis Hematuria Bloated abdomen Breast cancer screening by mammogram Nocturnal hypoxemia due to obesity WILMER (obstructive sleep apnea) Morbid obesity Obesities, morbid Annual physical exam Obstructive sleep apnea hypopnea, severe Nasal congestion Hypertension Hypersomnia Hematuria Surgical History Previous section Family History Mother Lung cancer Father COPD (chronic obstructive pulmonary disease) Myocardial infarct Alcohol abuse Brother Alcohol abuse Social History Household Members: Spouse Housing: House Alcohol intake: never Patient Tobacco Use Status: Never used Tobacco Tobacco use type: Cigarette e-Cigarette/Vaping Use: Never Used Second Hand Smoke Exposure: No 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al status: employed 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 Sexual orientation: Straight/Heterosexual Gender identity: Female Cognitive needs: No Hearing needs: No Vision needs: Yes Review of Systems Const All systems reviewed & are unremarkable except as noted in HPI and below Reports snoring Eyes Reports no additional complaints ENT Reports nasal congestion (Intermittent, mild) Card Denies chest pain, Denies irregular heart rhythm and Denies leg edema Resp Denies cough, Reports snoring and Denies wheezing GI Reports no additional complaints Reports nocturia Musc Reports no additional complaints Skin/Breast Reports system reviewed and no additional complaints, except as documented Neuro Reports no additional complaints Psych Reports no additional complaints Endo Reports no additional complaints Daniel/Lymph Reports no additional complaints Aller/Immun Denies wheezing Physical Exam Vital Signs: Last Vital Signs Pulse 68 04/26/24 09:30 BP 140/90 H 04/26/24 09:30 Pulse Ox 95 04/26/24 09:30 Oxygen Delivery Method Room Air 04/26/24 09:30 BMI result Body Mass Index 45.8 Const General: healthy appearing (Except for being overweight), comfortable, no acute distress, alert and awake Orientation/consciousness: patient oriented x3 HEENT Head: Yes normal to inspection General nose exam: No nasal polyps present, No nasal discharge present and Other nasal findings present (HAS BILATERAL NASAL CONGESTION) Face and sinus: Yes sinuses nontender Mouth: oropharynx normal Throat: No posterior oropharynx normal (Oropharynx is crowded, Mallampati class 4) Eyes General: appearance normal, both eyes and all related structures Neck Neck: Yes normal visual inspection, Yes no lymphadenopathy, Yes trachea midline, Yes no JVD and Yes other (Neck size 17 in) Thyroid: Thyroid normal Chest Chest palpation & inspection: normal inspection of the chest, normal palpation of entire chest wall and no tenderness Resp Effort & Inspection: normal respiratory effort Auscultation: clear to auscultation bilaterally, no crackles, no rhonchi and no wheezes Percussion: percussion normal Cardio Palpation: normal PMI Rate: regular rate Rhythm: regular rhythm Heart sounds: no gallops and no murmurs Peripheral pulses: Peripheral pulses 2+ throughout GI Palpation (GI): Soft to palpation, nontender, No hepatosplenomegaly present, no masses and Other GI palpation findings present (Abdomen is moderately obese and protuberant) Auscultation: normal bowel sounds Back/Spine/Pelvis Thoracic/Lumbar Spine: thoracic and lumbar spine normal to inspection Skin General skin exam: no rashes or lesions noted Neuro General: patient oriented x3 and no focal motor deficits Cranial nerves: Yes CN's II-XII intact bilaterally Extrem General: Yes normal to inspection, Yes no clubbing, cyanosis or edema and Yes no calf tenderness Psych Appearance: grossly normal and well kempt Speech and movement: Normal speech and movement present Results Reviewed Results Reviewed: COMPLIANCE FOR THE LAST 30 NIGHTS REVIEWED. SHE HAS USED 30/30 NIGHTS., 100% AVERAGE USAGE PER NIGHT 9 HOURS 11 MINUTES. RESIDUAL AHI 1.3. Assessment & Plan Assessment & Plan (1) Morbid obesity: Comment: Patient is morbidly obese, she is fully aware of this, SHE IS TRYING TO LOSE WEIGHT ON HER OWN AND HAS LOST A FEW LB SINCE HER LAST VISIT SHE DOES KEEP TRACK OF DAILY WALKING AND ALSO DIETARY INTAKE. Code(s): E66.01 - Morbid (severe) obesity due to excess calories Category: Medical Plan: ENCOURAGED TO WATCH DIET AND TRY TO INCREASE DAILY ACTIVITY/EXERCISE (2) WILMER (obstructive sleep apnea): Comment: Patient has severe obstructive sleep apnea accompanied with nocturnal hypoxemia. CPAP titration corrected the obstructive events as well as hypoxemia with pressure of 15 cm. PATIENT HAS BEEN USING THE NEW CPAP DEVICE REGULARLY, AND BENEFITING. COMPLIANCE IS GOOD. Code(s): G47.33 - Obstructive sleep apnea (adult) (pediatric) Category: Medical Plan: COMMENDED FOR GOOD COMPLIANCE AND ADVISED TO KEEP ON USING THE CPAP EVERY NIGHT (3) Rhinosinusitis: Comment: SHE DOES HAVE MODERATE DEGREE OF RHINOSINUSITIS AT THIS TIME, MOST LIKELY VIRAL, BUT HAS NOT IMPROVED OVER THE COURSE OF LAST 1 WEEK. PATIENT REQUESTING ANTIBIOTIC. Code(s): J32.9 - Chronic sinusitis, unspecified Category: Medical Plan: A COURSE OF Z-NAYELY IS PRESCRIBED. CONTINUE USING FLONASE 2 SPRAY EACH NOSTRIL DAILY. MAY ALSO USE OTC ANTIHISTAMINIC AGENT SUCH CLARITIN CETIRIZINE 1 TABLET DAILY. STRESS THAT SHE SHOULD DO STEAM INHALATIONS AT LEASE 2-3 TIMES DAILY. Medications: New azithromycin For 250 mg dose pack: take 500 mg today (day 1), then 250 mg for 4 days (days 2-5) PO 6 tabs 0RF Renetta Hernández MD Changed From omeprazole 20 mg PO DAILY 30 caps 1RF K21.9 - Gastro-esophageal reflux disease without esophagitis To omeprazole 20 mg PO DAILY PRN K21.9 - Gastro-esophageal reflux disease without esophagitis Joanne Nguyen MD Coding Level of Care Code Est Pt Level 3 (43260) Diagnoses Morbid obesity E66.01 WILMER (obstructive sleep apnea) G47.33 Rhinosinusitis J32.9
== END 2024-04-26 09:52 | disposition home or self-care (01) ==
PROVIDERS: PCP Internal Medicine; Visit Provider Internal Medicine
DX: E66.01 Morbid (severe) obesity due to excess calories (principal); G47.33 Obstructive sleep apnea (adult) (pediatric); J32.9 Chronic sinusitis, unspecified
CPT/HCPCS: 99213

== ENCOUNTER → 2024-04-26 09:15 | Outpatient (BNVA) | payer BC, SELFPAY | PROVIDERS: PCP Internal Medicine; Visit Provider Internal Medicine ==

== ENCOUNTER 2024-07-13 10:11 | Outpatient (REF) | payer BC, SELFPAY ==
[2024-07-13 10:37] LABS: MANUAL DIFF FLAG NO
[2024-07-13 10:45] LABS: Basophils Percent Auto 0.6 % (0-2); Eosinophils Absolute Auto 0.1 X10*3/uL (0.0-0.4); Eosinophils Percent Auto 1.5 % (0-4); Hematocrit 40.6 % (37.0-47.0); Imm Gran Abs Auto 0.01 X10*3/uL (0.00-0.03); Imm Gran Pct Auto 0.2 % (0.0-0.4); Lymphocytes Absolute Auto 1.6 X10*3/uL (1.2-4.9); Lymphocytes Percent Auto 32.4 % (20-40); Mean Corpuscular HGB Conc 34.5 g/dl (31.0-35.0); Mean Corpuscular Hemoglobin 29.7 pg (27.0-33.0); Mean Platelet Volume 9.3 fL (9.4-12.3); Monocytes Absolute Auto 0.5 X10*3/uL (0.1-1.2); Neutrophils Absolute Auto 2.6 x10*3/uL (2.0-8.3); Neutrophils Percent Auto 55.3 % (45-73); Platelet Count 209 X10*3/uL (160-400); Red Blood Count 4.72 X10*6/uL (4.20-5.50); Red Cell Distribution Width 12.5 % (11.0-16.0); White Blood Count 4.8 X10*3/uL (4.8-10.8)
[2024-07-13 11:06] LABS: Estimated Average Glucose 103 mg/dL; Hemoglobin A1C 121.5577 umol/L; Hemoglobin A1c % 5.2 % (<6.0); Total Hemoglobin (HGBA1C) 3680.6919 umol/L
[2024-07-13 11:53] LABS: Alanine Aminotransferase 30 U/L (0-31); Alkaline Phosphatase 78 U/L (39-117); Anion Gap 8 (12-20); Aspartate Amino Transferase 29 U/L (5-31); Bilirubin Total 0.7 mg/dL (0.0-1.0); Blood Urea Nitrogen 12 mg/dL (9-16); Carbon Dioxide 30 mmol/L (22-29); Chloride 109 mmol/L (96-108); Cholesterol 136 mg/dL (<200); Estimated Glomerular Filt Rate > 60; Glucose Random 88 mg/dL (60-115); HDL Cholesterol 64 mg/dL (>40); LDL Cholesterol Calculated 59 mg/dL (<100); Potassium 3.7 mmol/L (3.3-5.1); Sodium 143 mmol/L (135-145); Total Protein 6.6 g/dL (6.5-8.0); Triglycerides 67 mg/dL (<150)
[2024-07-13 12:06] LABS: Folate 10.6 ng/mL (> or = 4.0); Vitamin B12 255 pg/mL (200-900)
[2024-07-13 12:10] LABS: Free T4 (Free Thyroxine) 0.91 ng/dL (0.71-1.85); Thyroid Stimulating Hormone 1.48 uIU/mL (0.32-4.0)
== END 2024-07-13 10:12 | disposition home or self-care (01) ==
LOC: HO.LAB 10:11
PROVIDERS: PCP Internal Medicine; Visit Provider Internal Medicine
DX: K21.9 Gastro-esophageal reflux disease without esophagitis (principal); E78.00 Pure hypercholesterolemia, unspecified
CPT/HCPCS: 36415; 80053; 80061; 82306; 82607; 82746; 83036; 84439; 84443; 85025

== ENCOUNTER 2024-07-20 11:06 | Outpatient (AMB) | payer BC, SELFPAY ==
--- NOTE | 2024-07-20 11:28 | MHC.PC.OV ---
Vital Signs 07/20/24 11:30 Height 5 ft 1 in Weight 236 lb BMI 44.6 BP 132/80 Blood Pressure Location Lt brachial Position Sitting Pulse 62 Pulse Source Pulse Oximeter Temp 97.3 F Temp Source Temporal Artery Scan Pulse Oximetry (%) 98 Oxygen Delivery Method Room Air Intake Visit Reasons: ANNUAL EXAM Intake Note: Patient is here today for a physical. 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 per policy Accompanied by: Self / Same As Patient Allergies No Known Allergies Allergy (Verified 07/20/24 11:28) Medication List - Last Reconciled 07/20/24 by Joanne Nguyen MD cholecalciferol (vitamin D3) 125 mcg PO DAILY 30 days compress.stocking,knee,reg,lrg As directed 20-30 mm HG [CPAP ] fluticasone propionate 50 mcg/actuation (Flonase Allergy Relief) 2 sprays intranasal DAILY omeprazole 20 mg PO DAILY PRN [wrist Splint bilateral As directed] Tobacco use date assessed: 07/20/24 Dental Screening Dental Screen Date: 07/20/24 Did you have a dental visit in the last 12 months?: Yes Did you have a dental problem in the last 6 months where you did not have access to dental care?: No Was dental information given to patient?: Patient has dentist [facility] Medical History (Updated 07/20/24 @ 12:15 by Joanne Nguyen MD) Rhinosinusitis Hematuria Bloated abdomen Breast cancer screening by mammogram Nocturnal hypoxemia due to obesity WILMER (obstructive sleep apnea) Morbid obesity Obesities, morbid Annual physical exam Obstructive sleep apnea hypopnea, severe Nasal congestion Hypertension Hypersomnia Hematuria Surgical History (Updated 07/20/24 @ 11:35 by LULY Trinh) History of hysterectomy Previous section Family History Mother Lung cancer Father COPD (chronic obstructive pulmonary disease) Myocardial infarct Alcohol abuse Brother Alcohol abuse Social History Household Members: Spouse Housing: House Alcohol intake: never Patient Tobacco Use Status: Never used Tobacco Tobacco use type: Cigarette e-Cigarette/Vaping Use: Never Used Second Hand Smoke Exposure: No service: No 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al status: employed 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 1. Little interest or pleasure in doing things: not at all 2. Feeling down, depressed, or hopeless: not at all 3. Trouble falling or staying asleep, or sleeping too much: not at all 4. Feeling tired or having little energy: not at all 5. Poor appetite or overeating: not at all 6. Feeling bad about yourself - or that you are a failure or have let yourself or your family down: not at all 7. Trouble concentrating on things, such as reading the newspaper or watching television: not at all 8. Moving or speaking so slowly that other people could have noticed. Or the opposite - being so fidgety or restless that you have been moving around a lot more than usual: not at all 9. Thoughts that you would be better off or of hurting yourself in some way: not at all Total score: 0 Source: Developed by Drs. Nino Jackson, Tami Martino, Escobar Del Rio and colleagues, with an educational fidel from [employer]. Thrive Questionnaire Date Thrive assessed: 07/13/24 I am a: Patient What is your living situation today?: I have a steady place to live Within the past 12 months, did the food you bought not last and you didn't have the money to get more?: Often true Within the past 12 months, did you worry whether your food would run out before you got money to buy more?: Never true Do you have trouble paying for medicines?: No Do you have trouble getting transportation to medical appointments?: No Do you have trouble paying your heating and electricity bill?: No Do you have trouble taking care of your child, family member or friend?: No Do you have trouble with day-to-day activities such as bathing, preparing meals, shopping, managing finances, etc.?: No Are you currently unemployed and looking for a job?: No Are you interested in more education?: No Please select the resources that you would like help with: None Currently or been in a relationship where the following occur: No concerns reported THRIVE Score: 1 AUDIT C Alcohol Use Questionnaire (AUDIT-C) 1. How often do you have a drink containing alcohol?: Never 3. How often do you have six or more drinks on one occasion?: Never Total Score: 0 KYLER-7 AMB Questionnaire KYLER-7 Date KYLER - 7 assessed: 07/20/24 Feeling nervous, anxious, or on edge: 0 = Not at all Not being able to stop or control worryin = Not at all Worrying too much about different things: 0 = Not at all Trouble relaxin = Not at all Being so restless that it is hard to sit still: 0 = Not at all Becoming easily annoyed or irritable: 0 = Not at all Feeling afraid as if something awful might happen: 0 = Not at all Total KYLER-7 score (0-4 normal; 5-9 mild; 10-14 moderate; 15-21 severe): 0 Source: Developed by Drs. Nino Jackson, Tami Martino, Escobar Del Rio and colleagues, with an educational fidel from [employer]. Review of Systems Const Denies poor appetite and Denies weakness Eyes Denies no additional complaints ENT Reports Normal hearing present, Denies dizziness, Denies nasal congestion, Denies tinnitus and Denies sore throat Card Denies chest pain, Denies syncope, Denies rapid heart rate and Denies dyspnea Resp Denies cough and Denies dyspnea GI Denies change in stool character, Reports constipation, Denies diarrhea, Denies nausea and Denies vomiting Denies urinary frequency, Denies difficulty voiding and Denies dysuria Neuro Reports Normal hearing present, Denies confusion, Denies dizziness, Denies syncope and Denies weakness Psych Denies confusion Physical exam (Primary Care) Vital Signs: Last Vital Signs Temp 97.3 F 07/20/24 11:30 Pulse 62 07/20/24 11:30 BP 132/80 07/20/24 11:30 Pulse Ox 98 07/20/24 11:30 Oxygen Delivery Method Room Air 07/20/24 11:30 BMI result Body Mass Index 44.6 Tobacco/Smoking Status: Tobacco use Status Tobacco use date assessed 07/20/24 07/20/24 11:36 Patient Tobacco Use Status Never used Tobacco 07/20/24 11:36 Tobacco use type Cigarette 07/20/24 11:36 e-Cigarette/Vaping Use Never Used 07/20/24 11:36 PHQ-9: PHQ-9 Score PHQ-9: Total score 0 07/20/24 11:36 Thrive Assessment: Date of Thrive Assessment Date Thrive assessed 07/13/24 07/20/24 11:36 Currently or been in a relationship where the following occur: No concerns reported Const General: No confusion Orientation/consciousness: No confusion HENMT Head: Yes normocephalic Ears: external ears normal and TM's normal bilaterally Face and sinus: Yes normal facial exam Mouth: moist mucous membranes Throat: Yes tonsils normal Eyes Conjunctivae: conjunctivae normal Pupils: Equal, round and reactive pupils present and Pupil accommodation reflex normal Direct Ophthalmoscopy: normal light reflex Neck Neck: No lymphadenopathy Thyroid: Thyroid normal Chest Chest palpation & inspection: normal inspection of the chest Resp Effort & Inspection: normal respiratory effort and no audible wheezes Auscultation: clear to auscultation bilaterally, no crackles, no wheezes and lung sounds not diminished Cardio Rate: regular rate Rhythm: regular rhythm Peripheral pulses: radial pulses present and dorsalis pedis present GI Other: guaiac negative, Palpation (GI): no masses Auscultation: normal bowel sounds and normoactive bowel sounds Skin General skin exam: no rashes or lesions noted Rashes: no rashes Neuro General: No confusion Cranial nerves: Yes Equal, round and reactive pupils present and Yes Normal hearing present Cognition (Neuro): normal cognition Gait exam (Neuro): Normal gait present Motor exam (neuro): 5/5 motor strength present throughout Deep tendon reflexes (DTR's): Right brachioradialis reflex intensity grade: 2+, Left brachioradialis reflex intensity grade: 2+, Right patellar reflex intensity grade: 2+ and Left patellar reflex intensity grade: 2+ Extrem General: No edema Coding Level of Care Code Est Pt Prev Care 40-64y(25564) Diagnoses Annual physical exam Z00.00 Morbid obesity E66.01 WILMER (obstructive sleep apnea) G47.33 GERD (gastroesophageal reflux disease) K21.9 Fatty liver K76.0 Endometrial carcinoma C54.1 Assessment & Plan Assessment & Plan (1) Annual physical exam: Code(s): Z00.00 - Encounter for general adult medical examination without abnormal findings Category: Medical Plan: Patient is advised to eat healthy, keep well hydrated, keep active and have adequate sleep. (2) Morbid obesity: Comment: Patient is morbidly obese, she is fully aware of this, SHE IS TRYING TO LOSE WEIGHT ON HER OWN AND HAS LOST A FEW LB SINCE HER LAST VISIT SHE DOES KEEP TRACK OF DAILY WALKING AND ALSO DIETARY INTAKE. Code(s): E66.01 - Morbid (severe) obesity due to excess calories Category: Medical Plan: Continue with diet and exercise (3) WILMER (obstructive sleep apnea): Comment: Patient has severe obstructive sleep apnea accompanied with nocturnal hypoxemia. CPAP titration corrected the obstructive events as well as hypoxemia with pressure of 15 cm. PATIENT HAS BEEN USING THE NEW CPAP DEVICE REGULARLY, AND BENEFITING. COMPLIANCE IS GOOD. Code(s): G47.33 - Obstructive sleep apnea (adult) (pediatric) Category: Medical Plan: Continue to use the CPAP more than 4 hours a night and benefits from this (4) GERD (gastroesophageal reflux disease): Comment: July 2022 Code(s): K21.9 - Gastro-esophageal reflux disease without esophagitis Category: Medical Plan: Avoid the foods that causes that usually spicy foods, tomato products, juices, coffee, soda and foods that your sensitive to. After eating do not lie down, allow 3-4 hours before in lie down. And keep the head of bed above 30 degrees to avoid the acid from going up. (5) Fatty liver: Comment: June 2022 Code(s): K76.0 - Fatty (change of) liver, not elsewhere classified Category: Medical Plan: Low-fat diet and exercise (6) Endometrial carcinoma: Comment: Adenocarcinoma FIGO grade 1 07/2023 Code(s): C54.1 - Malignant neoplasm of endometrium Category: Medical Plan: Continue to follow-up with gynecology Plan History of Present Illness Health Maintenance - Vitamin D supplementation prescribed due to deficiency (current level: 9 ng/mL). - Encouragement to maintain regular CPAP use and ongoing low-fat diet for GERD management. - Bi-annual gynecological follow-ups post-hysterectomy (visit anticipated August). - Recommendation to increase vitamin B12 intake, considering its lower range. - Encouraged to manage diet and continue exercise for weight management and cardiovascular health. - Provided with guideline-based cancer screening timelines and vaccinations: encouragement of lifestyle interventions to mitigate cardiovascular risks. - Advised against late-night fluid intake to mitigate nocturia. 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 - Denies tobacco use, alcohol consumption, and recreational drug use. - Engages in a diet limiting foods that exacerbate GERD symptoms. - Resides with a pet dog contributing to occasional sinus-related symptoms. Review of Systems - Neurological: Denies dizziness, vertigo, syncope. - Cardiovascular: Denies chest pain, palpitations, dyspnea on exertion. - Respiratory: Denies shortness of breath, cough. - Gastrointestinal: Denies nausea, vomiting, constipation, diarrhea. Reports infrequent heartburn due to dietary modification. - Musculoskeletal: Denies joint pain. Reports no recent injuries. - Endocrine: Denies heat or cold intolerance. - Hematologic: Denies easy bruising or prolonged bleeding. - Skin: Denies rash, lesions or skin changes. - Psychological: Reports increased occupational stress, denies depression or anxiety. Physical Exam General: Cooperative, healthy appearing, comfortable, no acute distress and well developed Orientation: Patient oriented x3 Limitations: No limitations Head: Normal to inspection Ears: Hearing grossly normal bilaterally Nose: Normal external nose present Face and sinus: Normal facial exam Eyes: Appearance normal, both eyes and all related structures Neck: Normal visual inspection and Yes full ROM Respiratory: Normal respiratory effort and able to speak in complete sentences. Clear to auscultation bilaterally Cardiovascular: Regular rate and rhythm. Normal S1 and S2 GI: Normal to inspection. Soft to palpation and nontender Skin: No rashes or lesions noted Neuro: Patient oriented x3 Extremities: Normal to inspection Results - Labs: Blood count normal, electrolytes normal, renal function normal, blood sugar 88 mg/dL, hemoglobin A1c normal, vitamin B12 at 255 pg/mL, vitamin D at 9 ng/mL. - Cholesterol levels: LDL cholesterol 59 mg/dL, HDL cholesterol 64 mg/dL. Plan The patient is advised to continue her current treatment regimen for her chronic medical conditions, including CPAP use, a regulated diet to manage GERD, and the initiation of vitamin D supplementation to address deficiency. The slightly low vitamin levels can be managed with increased dietary intake or [id number] supplementation. Ongoing follow-up with her rubber calender helper is recommended to monitor her gynecologic health, particularly following her endometrial cancer history. Stress management strategies are suggested to address workplace issues. Routine monitoring of her cholesterol and HbA1c remains a priority given her overall favorable results. Supporting lifestyle modifications through diet and exercise to address her obesity remain ongoing components of care. Patient was informed and verbally consented to the use of an ambient scribe for clinic note documentation during this visit. Discussion Notes During this visit, a comprehensive discussion was conducted regarding the management of several chronic conditions. The patient was informed of the importance of maintaining CPAP therapy for obstructive sleep apnea. The risks associated with untreated vitamin D deficiency and slightly low vitamin B12 were addressed, with supplementation strategies detailed. The patient expressed concerns over workplace stress, which were acknowledged, and she was advised on ways to address these concerns with HR. We also reviewed the benefits of a structured diet and exercise plan to improve overall health outcomes and manage weight. The patient was encouraged to adhere to her follow-up schedule with her rubber calender helper, especially in the context of her prior cancer history. Consent was implicitly obtained for the proposed interventions as the patient voiced understanding and agreement with the outlined management plan. Patient Instructions - Continue using CPAP more than four hours each night for sleep apnea management. - Follow a low-fat diet and engage in regular exercise to manage GERD and assist with weight management. - Take prescribed vitamin D supplements to address deficiency. - Consider dietary adjustments or supplements for slightly low vitamin B12. - Discuss reported occupational stress with HR if necessary. - Follow up with a rubber calender helper bi-annually to monitor endometrial cancer status. - Engage in stress-reduction activities and maintain overall wellness. - Monitor for new or significant symptoms, and seek care if they arise. - Maintain routine lab checks as advised to monitor cholesterol and HbA1c.
[2024-07-20 11:30] VITALS: BP 132/80; PULSE 62; TEMP 36.3; O2SAT 98; BMI 44.6
--- OUTSIDE RECORDS SUMMARY | 2024-07-20 13:28 | XMS_ITS | Clinical Summary ---
Author Organization [facility] ity Address [address] [place] [address] Care Team Providers Care Scientific Software Developer Name Role Phone Unavailable Primary Care Provider Unavailabl e Social History Tobacco Use Types Packs/Day Years Used Date Smoking Tobacco: Never Assessed Comments Unknown Sex and Gender Information Value Date Recorded Sex Assigned at Not on file Legal Sex Female 10:14 AM EST Gender Identity Not on file Sexual Orientation Not on file Plan of Treatment Health Maintenance Due Date Last Done Comments DTaP,Tdap,and Td Vaccines (1 - Tdap) 1981 Cervical Cancer Screening: P ap Smear 1983 Pneumococcal Vaccine: 50+ Ye ars (1 of 1 - PCV) 2012 Zoster Vaccines (1 of 2) 2012 Breast Cancer Screening 12/02/2019 12/01/2017 COVID-19 Vaccine ( - 2023-2 5 season) 2023 Influenza Vaccine (#1) 2023 RSV Immunization Adult Patie nts (1 - 1-dose 75+ series) 2037 HIB Vaccines Aged Out No longer eligi ble based on patient's age to complete this topic HPV Vaccines Aged Out No longer eligi ble based on patient's age to complete this topic Hepatitis A Vaccines Aged Out No long er eligible based on patient's age to complete this topic Hepatitis B Vaccines Aged Out No long er eligible based on patient's age to complete this topic IPV Vaccines Aged Out No longer eligi ble based on patient's age to complete this topic MMR Vaccines Aged Out No longer eligi ble based on patient's age to complete this topic Meningococcal ACWY Vaccine Aged Out N o longer eligible based on patient's age to complete this topic Meningococcal B Vacine Aged Out No lo nger eligible based on patient's age to complete this topic Pneumococcal Vaccine: Pediat rics (0 to 5 Years) and At-Risk Patients (6 to 64 Years) Aged Out No longer eligi ble based on patient's age to complete this topic RSV Immunization Patients Un roney 20 months Aged Out No longer eligible b ased on patient's age to complete this topic Varicella Vaccines Aged Out No longer eligible based on patient's age to complete this topic Procedures Procedure Name Priority Date/Time Associated Diagnosis Comments [facility] SCREENING DIGITAL Routine 12/01/2017 5:00 PM EDT Encounter for screening mammogram for malignant neoplasm of breast from Last 3 Months or Most Recently Relevant to Health Maintenance Results * [facility] SCREENING DIGITAL (12/01/2017 5:00 PM EDT) Anatomical Region Laterality Modality Mammography 12/01/2017 11:0 2 AM EDT Narrative 12/01/2017 5:00 PM EDT [facility] Diagnostic Imaging Department [address] [place], [place] [id number] Patient: ??SUSANA TAVARES ?/Age/Sex: 1960 - 57 - F Unit#: ??[id number] ? Location/Status: ??SPDIMAM/REG CLI ? Mnemonic/Ordering Site: ??DIGSC/SPMAM Ordering Physician: ??ROBERT GARCIA MD [facility] Screening Digital - 12/01/17 - 1120 History: Breast cancer screening. Technique: ?? Bilateral digital mammography. Conventional CC and MLO projections with tomosynthesis MLO views and computer aided detection. Comparison: [facility] 09/19/2008. No additional breast imaging available. Findings: ?? Breast tissue consists of mostly fatty tissue, category a density. Approximate 6 mm oval asymmetry overlies the posterior aspect of the right breast MLO projection just below the nipple line persisting on tomography (image 96/101) suggesting finding resides within the medial right breast. Faint asymmetry suggested posterior medially right cc projection. No architectural distortion. Asymmetries elsewhere are unchanged. Scattered benign non grouped calcifications. Impression: Posterior medial right breast 6 mm masslike asymmetry is incompletely evaluated. Recommend spot compression view right MLO projection and CC projection tomography with possible ultrasound to follow. Patient will be contacted directly to arrange for supplementary imaging. BIRADS Category 0: Incomplete. Needs further imaging evaluation, [id number], [id number] Patient information entered into a reminder system with a target date for the next mammogram. [id number] Dictating Physician: ??FLASH US MD Electronically Signed by: ??FLASH US MD Dic Date/Time: ??12/01/17 165 Sign date/Time: ??12/01/17 1700 Procedure Note Flash Us MD - 04/08/2022 [facility] Diagnostic Imaging Department [address] [place] [id number] Patient: SUSANA TAVARESO.B./Age/Sex: 1960 - 57 - F Unit#: [id number] Location/Status: [facility] CLI Mnemonic/Ordering Site: [facility] Ordering Physician: ROBERT GARCIA MD [facility] Screening Digital - 12/01/17 - 1120 History: Breast cancer screening. Technique: Bilateral digital mammography. Conventional CC and MLOprojections with tomosynthesis MLO views and computer aided detection. Comparison: [facility] 09/19/2008. No additional breast imaging available. Findings: Breast tissue consists of mostly fatty tissue, category adensity. Approximate 6 mm oval asymmetry overlies the posterior aspect of theright breast MLO projection just below the nipple line persisting on tomography(image 96/101) suggesting finding resides within the medial right breast. Faint asymmetry suggested posterior medially right cc projection. Noarchitectural distortion. Asymmetries elsewhere are unchanged. Scattered benign non grouped calcifications. Impression: Posterior medial right breast 6 mm masslike asymmetry is incompletely evaluated. Recommend spot compression view right MLOprojection and CC projection tomography with possible ultrasound to follow. Patient will be contacted directly to arrange for supplementary imaging. BIRADS Category 0: Incomplete. Needs further imaging evaluation, [id number], [id number] Patient information entered into a reminder system with a target date forthe next mammogram. [id number] Dictating Physician: FLASH US MD Electronically Signed by: FLASH US MD Dic Date/Time: 12/01/17 1651 Sign date/Time: 12/01/17 1700 us Robert Garcia MD IMG BI PROCEDURES Final Resul t from Last 3 Months or Most Recently Relevant to Health Maintenance
== END 2024-07-20 12:38 | disposition home or self-care (01) ==
LOC: HO.HMCH 11:07
PROVIDERS: PCP Internal Medicine; Visit Provider Internal Medicine
DX: Z00.00 Encounter for general adult medical examination without abnormal findings (principal); E66.01 Morbid (severe) obesity due to excess calories; Z68.41 Body mass index [BMI] 40.0-44.9, adult; C54.1 Malignant neoplasm of endometrium; G47.33 Obstructive sleep apnea (adult) (pediatric); K21.9 Gastro-esophageal reflux disease without esophagitis; K76.0 Fatty (change of) liver, not elsewhere classified

== ENCOUNTER 2024-09-07 12:38 | Outpatient (REF) | payer BC, SELFPAY ==
--- OUTSIDE RECORDS SUMMARY | 2024-09-07 13:23 | XMS_ITS | Clinical Summary ---
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 Phone Unavailable Primary Care Provider [...] - 2023-2 5 season) 2023 Influenza Vaccine (Season Ended) 2024 RSV Immunization Adult Patie nts (1 - [...] age to complete this topic Meningococcal B Vaccine Aged Out No l onger eligible based on patient's age to complete [...] Procedure Name Priority Date/Time Associated Diagnosis Comments [facility] SCREENING DIGITAL Routine 12/01/2017 5:00 PM EDT Encounter for screening mammogram for malignant neoplasm of breast from Last 3 Months or Most Recently Relevant to Health Maintenance Results * [facility] SCREENING DIGITAL (12/01/2017 5:00 PM EDT) Anatomical Region Laterality Modality Mammography 12/01/2017 11:0 2 AM EDT Narrative 12/01/2017 5:00 PM EDT [facility] Diagnostic Imaging Department [address] [place] [id number] Patient: ??SUSANA TAVARES ?/Age/Sex: 1960 - 57 - F Unit#: ??[id number] ? Location/Status: ??SPDIMAM/REG CLI ? Mnemonic/Ordering Site: ??DIGSC/SPMAM Ordering Physician: ??ROBERT GARCIA MD [facility] Screening Digital - 12/01/17 - 1120 History: Breast cancer screening. Technique: ?? Bilateral digital mammography. Conventional CC and MLO projections with tomosynthesis MLO views and computer aided detection. Comparison: [place] [facility] 09/19/2008. No additional breast imaging available. Findings: [...] 0: Incomplete. Needs further imaging evaluation, [id number], 12045 Patient information entered into a reminder system with a target date for the next mammogram. [place] [id number] Dictating Physician: ??FLASH US MD Electronically Signed by: ??FLASH US MD Dic Date/Time: ??12/01/17 7802 Sign date/Time: ??12/01/17 1700 Procedure Note Flash Us MD - 04/08/2022 [facility] Diagnostic Imaging Department [address] [place] [id number] Patient: SUSANA TAVARES D.O.B./Age/Sex: 1960 - 57 - F Unit#: [id number] Location/Status: [facility]/REG CLI Mnemonic/Ordering Site: [facility] Ordering Physician: ROBERT GARCIA MD [facility] Screening Digital - 12/01/17 - 1120 History: Breast cancer screening. Technique: Bilateral digital mammography. Conventional CC and MLOprojections with tomosynthesis MLO views and computer aided detection. Comparison: [place] [facility] 09/19/2008. No additional breast imaging available. Findings: [...] 0: Incomplete. Needs further imaging evaluation, [id number], 41123 Patient information entered into a reminder system with a target date forthe next mammogram. [id number] Dictating Physician: FLASH US MD Electronically Signed by: FLASH US MD Dic Date/Time: 12/01/17 1653 Sign date/Time: 12/01/17 1700 us Robert Garcia MD IMG BI PROCEDURES Final Resul t from Last 3 Months or Most Recently Relevant to Health Maintenance
== END 2024-09-07 12:39 | disposition home or self-care (01) ==
LOC: HO.MAMMO 12:38
PROVIDERS: PCP Internal Medicine; Visit Provider Internal Medicine
DX: Z12.31 Encounter for screening mammogram for malignant neoplasm of breast (principal)
CPT/HCPCS: 77063; 77067

== ENCOUNTER → 2024-09-07 12:45 | Outpatient (BNV) | payer BC, SELFPAY | PROVIDERS: PCP Internal Medicine; Visit Provider Internal Medicine | DX: Z12.31 Encounter for screening mammogram for malignant neoplasm of breast (principal) | CPT/HCPCS: 77063; 77067 ==

== ENCOUNTER 2024-10-26 10:13 | Outpatient (AMB) | payer BC, SELFPAY ==
[2024-10-26 10:29] VITALS: BP 132/90; PULSE 62; O2SAT 96; BMI 45.4
--- NOTE | 2024-10-26 10:29 | MHC.OFFVIS ---
Vital Signs 10/26/24 10:29 Height 5 ft 1 in Weight 240 lb 4.862 oz BMI 45.4 BP 132/90 H Blood Pressure Location Lt brachial Position Sitting Pulse 62 Pulse Source Pulse Oximeter Pulse Oximetry (%) 96 Oxygen Delivery Method Room Air Intake Visit Reasons: Obstructive sleep apnea Intake Note: pt is here for follow up and states she is okay with cpap Pearler Required: No Allergies No Known Allergies Allergy (Verified 10/26/24 11:06) Medication List - Last Reconciled 10/26/24 by Renetta Hernández MD cholecalciferol (vitamin D3) 125 mcg PO DAILY 30 days compress.stocking,knee,reg,lrg As directed 20-30 mm HG [CPAP ] fluticasone propionate 50 mcg/actuation (Flonase Allergy Relief) 2 sprays intranasal DAILY omeprazole 20 mg PO DAILY PRN [wrist Splint bilateral As directed] Do you need a note to return to daycare/school/sports/work: No HPI HPI Obstructive sleep apnea: Details: THIS 64 YEARS OLD VERY PLEASANT FEMALE, MORBIDLY OBESE AND WITH DIAGNOSIS OF OBSTRUCTIVE SLEEP APNEA COMES AFTER 6 MONTHS FOR FOLLOW-UP. HAS BEEN USING CPAP VERY REGULARLY EVERY NIGHT. SLEEPING UP TO 8 HOURS PER NIGHT BUT DOES WAKE ONCE OR TWICE TO GO TO THE BATHROOM. HER WEIGHT REMAINS UNCHANGED. SHE WORKS AT [employer] [place] AND DURING THE DAYTIME IS ON HER FEET MOST OF THE DAY. COMES HOME AND AT 20:00 OR AFTERWARDS SHE GOES TO BED AND SLEEPS. COMPLAINS OF BEING TIRED AND IS ASKING WHY SHE FALLS ASLEEP SO QUICKLY. NOTED ABOVE SHE HAS NOT LOST ANY WEIGHT. HE HAD A COMPLETE LAP TEST IN JUNE 2024 AND IT WAS BASICALLY WITHIN NORMAL LIMITS EXCEPT LOW VITAMIN-D LEVEL AND SHE IS NOW ON VITAMIN-D SUPPLEMENTATION. NASAL CONGESTION OFF AND ON IS MOSTLY UNDER CONTROLLED WITH USE OF FLONASE. [facility] Medical History Rhinosinusitis Hematuria Bloated abdomen Breast cancer screening by mammogram Nocturnal hypoxemia due to obesity WILMER (obstructive sleep apnea) Morbid obesity Obesities, morbid Annual physical exam Obstructive sleep apnea hypopnea, severe Nasal congestion Hypertension Hypersomnia Hematuria Surgical History History of hysterectomy Previous section Family History Mother Lung cancer Father COPD (chronic obstructive pulmonary disease) Myocardial infarct Alcohol abuse Brother Alcohol abuse Social History Household Members: Spouse Housing: House Alcohol intake: never Patient Tobacco Use Status: Never used Tobacco Tobacco use type: Cigarette e-Cigarette/Vaping Use: Never Used Second Hand Smoke Exposure: No service: No 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al status: employed 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: [employer] department Sexual orientation: Straight/Heterosexual Gender identity: Female Cognitive needs: No Hearing needs: No Vision needs: Yes Review of Systems Const All systems reviewed & are unremarkable except as noted in HPI and below Reports snoring Eyes Reports no additional complaints ENT Reports nasal congestion (Intermittent, mild) Card Denies chest pain, Denies irregular heart rhythm and Denies leg edema Resp Denies cough, Reports snoring and Denies wheezing GI Reports no additional complaints Reports nocturia Musc Reports no additional complaints Skin/Breast Reports system reviewed and no additional complaints, except as documented Neuro Reports no additional complaints Psych Reports no additional complaints Endo Reports no additional complaints Daniel/Lymph Reports no additional complaints Aller/Immun Denies wheezing Physical Exam Vital Signs: Last Vital Signs Pulse 62 10/26/24 10:29 BP 132/90 H 10/26/24 10:29 Pulse Ox 96 10/26/24 10:29 Oxygen Delivery Method Room Air 10/26/24 10:29 BMI result Body Mass Index 45.4 Const General: healthy appearing (Except for being overweight), comfortable, no acute distress, alert and awake Orientation/consciousness: patient oriented x3 HEENT Head: Yes normal to inspection General nose exam: No nasal polyps present, No nasal discharge present and Other nasal findings present (HAS BILATERAL NASAL CONGESTION) Face and sinus: Yes sinuses nontender Mouth: oropharynx normal Throat: No posterior oropharynx normal (Oropharynx is crowded, Mallampati class 4) Eyes General: appearance normal, both eyes and all related structures Neck Neck: Yes normal visual inspection, Yes no lymphadenopathy, Yes trachea midline, Yes no JVD and Yes other (Neck size 17 in) Thyroid: Thyroid normal Chest Chest palpation & inspection: normal inspection of the chest, normal palpation of entire chest wall and no tenderness Resp Effort & Inspection: normal respiratory effort Auscultation: clear to auscultation bilaterally, no crackles, no rhonchi and no wheezes Percussion: percussion normal Cardio Palpation: normal PMI Rate: regular rate Rhythm: regular rhythm Heart sounds: no gallops and no murmurs Peripheral pulses: Peripheral pulses 2+ throughout GI Palpation (GI): Soft to palpation, nontender, No hepatosplenomegaly present, no masses and Other GI palpation findings present (Abdomen is moderately obese and protuberant) Auscultation: normal bowel sounds Back/Spine/Pelvis Thoracic/Lumbar Spine: thoracic and lumbar spine normal to inspection Skin General skin exam: no rashes or lesions noted Neuro General: patient oriented x3 and no focal motor deficits Cranial nerves: Yes CN's II-XII intact bilaterally Extrem General: Yes normal to inspection, Yes no clubbing, cyanosis or edema and Yes no calf tenderness Psych Appearance: grossly normal and well kempt Speech and movement: Normal speech and movement present Results Reviewed Results Reviewed: COMPLIANCE REPORT FOR THE LAST 30 NIGHTS REVIEWED. SHE HAS USED 100% OF THE NIGHTS AND AVERAGE USE IT PER NIGHT 8 HOURS 33 MINUTES. PRESSURE SETTING IS 15 CM. SHE HAS OCCASIONAL AIR LEAK MAXIMUM 87. 95TH PERCENTILE IS ONLY 6. RESIDUAL AHI 1.0 Assessment & Plan Assessment & Plan (1) Morbid obesity: Comment: Patient is morbidly obese, she is fully aware of this, SHE IS TRYING TO LOSE WEIGHT ON HER OWN AND LOST A FEW LB ON THE LAST VISIT BUT REGAINED A FEW LB AGAIN. SHE DOES KEEP TRACK OF DAILY WALKING AND ALSO DIETARY INTAKE. Code(s): E66.01 - Morbid (severe) obesity due to excess calories Category: Medical Plan: TALKED TO HER ABOUT WEIGHT REDUCTION, TRY TO CUT DOWN THE PORTIONS OF MEALS. TRY TO STAY ACTIVE POSSIBLE. (2) WILMER (obstructive sleep apnea): Comment: Patient has severe obstructive sleep apnea accompanied with nocturnal hypoxemia. CPAP titration corrected the obstructive events as well as hypoxemia with pressure of 15 cm. PATIENT HAS BEEN USING THE NEW CPAP DEVICE REGULARLY, AND BENEFITING. COMPLIANCE IS GOOD. Code(s): G47.33 - Obstructive sleep apnea (adult) (pediatric) Category: Medical Plan: COMMENDED FOR GOOD COMPLIANCE AND ADVISED TO KEEP ON USING CPAP REGULARLY. TIGHTEN THE STRAPS LITTLE BUT MORE TO AVOID AIR LEAK. Coding Level of Care Code Est Pt Level 3 (02388) Diagnoses Morbid obesity E66.01 WILMER (obstructive sleep apnea) G47.33
--- OUTSIDE RECORDS SUMMARY | 2024-10-26 10:59 | XMS_ITS | Clinical Summary ---
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 Phone Unavailable Primary Care [...] Breast Cancer Screening 12/02/2019 12/01/2017 COVID-19 Vaccine (1 - 2023-2 5 season) 2023 Influenza Vaccine (#1) 2024 RSV Immunization Adult Patie nts (1 [...] 5 Years) and At-Risk Patients (6 to 49 Years) Aged Out No longer eligi ble based on patient's age to complete this topic RSV Immunization Patients Un roney 20 months Aged Out No longer eligible b ased on patient's age to complete this topic Varicella Vaccines Aged Out No longer eligible based on patient's age to complete this topic Procedures Procedure Name Priority Date/Time Associated Diagnosis Comments [facility] SCREENING DIGITAL Routine 12/01/2017 5:00 PM EDT Encounter for screening mammogram for malignant neoplasm of breast from Last 3 Months or Most Recently Relevant to Health Maintenance Results * [facility] SCREENING DIGITAL (12/01/2017 5:00 PM EDT) Anatomical Region Laterality Modality Mammography 12/01/2017 11:0 2 AM EDT Narrative 12/01/2017 5:[address] [facility] Diagnostic Imaging Department [address] [place], [place] [id number] Patient: SUSANA TAVARES D.O.B./Age/Sex: 1960 - 57 - F Unit#: [id number] Location/Status: [facility] CLI Mnemonic/Ordering Site: [facility] Ordering Physician: ROBERT GARCIA MD [facility] Screening Digital - 12/01/171119 History: Breast cancer screening. Technique: Bilateral digital mammography. Conventional CC and MLO projections with tomosynthesis MLO views and computer aided detection. Comparison: [facility] 09/19/2008. No additional breast imaging available. [...] 0: Incomplete. Needs further imaging evaluation, 3340F [id number], 69469 Patient information entered into a reminder system with a target date for the next mammogram. PQRI [id number] Dictating Physician: FLASH US MD Electronically Signed by: FLASH US MD Dic Date/Time: 12/01/17 165 Sign date/Time: 12/01/17 1700 Procedure Note Flash Us MD - 04/08/2022 [facility] Diagnostic Imaging Department [address] [place] [address] Patient: SUSANA TAVARES James HerrB./Age/Sex: 1960 - 57 - F Unit#: [id number] Location/Status: [facility] CLI Mnemonic/Ordering Site: [facility] Ordering Physician: ROBERT GARCIA MD [facility] Screening Digital - 12/01/17 - 1120 History: Breast cancer screening. Technique: Bilateral digital mammography. Conventional CC and MLOprojections with tomosynthesis MLO views and computer aided detection. Comparison: [facility] 09/19/2008. No additional breast imaging available. [...] 0: Incomplete. Needs further imaging evaluation, 3340F 14967, 09724 Patient information entered into a reminder system with a target date forthe next mammogram. PQRI [id number] Dictating Physician: FLASH SU MD Electronically Signed by: FLASH US MD Dic Date/Time: 12/01/17 1654 Sign date/Time: 12/01/17 1700 us Robert Garcia MD IMG BI PROCEDURES Final Resul t from Last 3 Months or Most Recently Relevant to Health Maintenance
== END 2024-10-26 11:05 | disposition home or self-care (01) ==
LOC: HO.HPS 10:13
PROVIDERS: PCP Internal Medicine; Visit Provider Internal Medicine
DX: E66.01 Morbid (severe) obesity due to excess calories (principal); G47.33 Obstructive sleep apnea (adult) (pediatric)
CPT/HCPCS: 99213

== ENCOUNTER 2025-01-25 08:23 | Outpatient (AMB) | payer BC, SELFPAY ==
[2025-01-25 08:25] VITALS: BP 140/98; PULSE 72; TEMP 36.3; O2SAT 97; BMI 45.0
--- NOTE | 2025-01-25 08:25 | A.OFFPC_ITS ---
Vital Signs 01/25/25 08:25 Height 5 ft 1 in Weight 238 lb 4 oz BMI 45.0 BP 140/98 H Blood Pressure Location Lt brachial Position Sitting Pulse 72 Pulse Source Pulse Oximeter Temp 97.4 F Temp Source Temporal Artery Scan Pulse Oximetry (%) 97 Oxygen Delivery Method Room Air Intake Visit Reasons: Obstructive sleep apnea Allergies seafood Adverse Reaction (Intermediate, Unverified 01/25/25 08:27) Swelling Medication List - Last Reconciled 01/25/25 by Joanne Nguyen MD cholecalciferol (vitamin D3) 125 mcg PO DAILY 30 days compress.stocking,knee,reg,lrg As directed 20-30 mm HG [CPAP ] cyanocobalamin (vitamin B-12) 1,000 mcg PO DAILY fluticasone propionate 50 mcg/actuation (Flonase Allergy Relief) 2 sprays intranasal DAILY omeprazole 20 mg PO DAILY PRN [wrist Splint bilateral As directed] Tobacco use date assessed: 01/25/25 Dental Screening Dental Screen Date: 01/25/25 Did you have a dental visit in the last 12 months?: Yes Did you have a dental problem in the last 6 months where you did not have access to dental care?: No Was dental information given to patient?: Patient has dentist HPI Obstructive sleep apnea HPI Details work stress and having BP elevated. complains of work not allowing water in the breakroom and asking for a letter for this- advised to get phone number. Patient has a planned vacation in the next 4 days to [place] and [employer] Medical History Rhinosinusitis Hematuria Bloated abdomen Breast cancer screening by mammogram Nocturnal hypoxemia due to obesity WILMER (obstructive sleep apnea) Morbid obesity Obesities, morbid Annual physical exam Obstructive sleep apnea hypopnea, severe Nasal congestion Hypertension Hypersomnia Hematuria Surgical History History of hysterectomy Previous section Family History Mother Lung cancer Father COPD (chronic obstructive pulmonary disease) Myocardial infarct Alcohol abuse Brother Alcohol abuse Social History Household Members: Spouse Housing: House Alcohol intake: never Patient Tobacco Use Status: Never used Tobacco Tobacco use type: Cigarette e-Cigarette/Vaping Use: Never Used Second Hand Smoke Exposure: No service: No 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al status: employed 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 1. Little interest or pleasure in doing things: not at all 2. Feeling down, depressed, or hopeless: not at all 3. Trouble falling or staying asleep, or sleeping too much: not at all 4. Feeling tired or having little energy: not at all 5. Poor appetite or overeating: not at all 6. Feeling bad about yourself - or that you are a failure or have let yourself or your family down: not at all 7. Trouble concentrating on things, such as reading the newspaper or watching television: not at all 8. Moving or speaking so slowly that other people could have noticed. Or the opposite - being so fidgety or restless that you have been moving around a lot more than usual: not at all 9. Thoughts that you would be better off or of hurting yourself in some way: not at all Total score: 0 Source: Developed by Drs. Nino Jackson, Tami Martino, Escobar Del Rio and colleagues, with an educational fidel from [employer] (Inspect Manager). Thrive Questionnaire Date Thrive assessed: 07/13/24 I am a: Patient What is your living situation today?: I have a steady place to live Within the past 12 months, did the food you bought not last and you didn't have the money to get more?: Often true Within the past 12 months, did you worry whether your food would run out before you got money to buy more?: Never true Do you have trouble paying for medicines?: No Do you have trouble getting transportation to medical appointments?: No Do you have trouble paying your heating and electricity bill?: No Do you have trouble taking care of your child, family member or friend?: No Do you have trouble with day-to-day activities such as bathing, preparing meals, shopping, managing finances, etc.?: No Are you currently unemployed and looking for a job?: No Are you interested in more education?: No Please select the resources that you would like help with: None Currently or been in a relationship where the following occur: No concerns reported THRIVE Score: 1 AUDIT C Alcohol Use Questionnaire (AUDIT-C) 1. How often do you have a drink containing alcohol?: Never 3. How often do you have six or more drinks on one occasion?: Never Total Score: 0 KYLER-7 AMB Questionnaire KYLER-7 Date KYLER - 7 assessed: 07/20/24 Feeling nervous, anxious, or on edge: 0 = Not at all Not being able to stop or control worryin = Not at all Worrying too much about different things: 0 = Not at all Trouble relaxin = Not at all Being so restless that it is hard to sit still: 0 = Not at all Becoming easily annoyed or irritable: 0 = Not at all Feeling afraid as if something awful might happen: 0 = Not at all Total KYLER-7 score (0-4 normal; 5-9 mild; 10-14 moderate; 15-21 severe): 0 Source: Developed by Drs. Nino Jackson, Tami Martino, Escobar Del Rio and colleagues, with an educational fidel from [employer] (Inspect Manager). Physical exam (Primary Care) Vital Signs: Last Vital Signs Temp 97.4 F 01/25/25 08:25 Pulse 72 01/25/25 08:25 BP 140/98 H 01/25/25 08:25 Pulse Ox 97 01/25/25 08:25 Oxygen Delivery Method Room Air 01/25/25 08:25 BMI result Body Mass Index 45.0 Tobacco/Smoking Status: Tobacco use Status Tobacco use date assessed 01/25/25 01/25/25 08:29 Patient Tobacco Use Status Never used Tobacco 01/25/25 08:29 Tobacco use type Cigarette 01/25/25 08:29 e-Cigarette/Vaping Use Never Used 01/25/25 08:29 PHQ-9: PHQ-9 Score PHQ-9: Total score 0 01/25/25 08:35 Thrive Assessment: Date of Thrive Assessment Date Thrive assessed 07/13/24 01/25/25 08:29 Currently or been in a relationship where the following occur: No concerns reported Const General: alert; No acute distress Eyes Conjunctivae: conjunctivae normal Resp Auscultation: clear to auscultation bilaterally Cardio Rate: regular rate Rhythm: regular rhythm GI Inspection: Yes normal to inspection Extrem General: Yes normal to inspection and No edema Coding Level of Care Code Est Pt Level 4 (97036) Complex EM visit Add On G2211 Diagnoses Morbid obesity E66.01 Vitamin D deficiency E55.9 B12 deficiency E53.8 GERD (gastroesophageal reflux disease) K21.9 Fatty liver K76.0 WILMER (obstructive sleep apnea) G47.33 Allergic contact dermatitis L23.9 Anxiety F41.9 Assessment & Plan Assessment & Plan (1) Morbid obesity: Comment: Patient is morbidly obese, she is fully aware of this, SHE IS TRYING TO LOSE WEIGHT ON HER OWN AND LOST A FEW LB ON THE LAST VISIT BUT REGAINED A FEW LB AGAIN. SHE DOES KEEP TRACK OF DAILY WALKING AND ALSO DIETARY INTAKE. Code(s): E66.01 - Morbid (severe) obesity due to excess calories Category: Medical Plan: Diet and exercise (2) Vitamin D deficiency: Code(s): E55.9 - Vitamin D deficiency, unspecified Category: Medical Plan: Vitamin-D 5020-0457 units once a day (3) B12 deficiency: Code(s): E53.8 - Deficiency of other specified B group vitamins Category: Medical Plan: Discussed about vitamin B12 a 1000 mcg once a day (4) GERD (gastroesophageal reflux disease): Comment: July 2022 Code(s): K21.9 - Gastro-esophageal reflux disease without esophagitis Category: Medical Plan: Avoid the foods that causes that usually spicy foods, tomato products, juices, coffee, soda and foods that your sensitive to. After eating do not lie down, allow 3-4 hours before in lie down. And keep the head of bed above 30 degrees to avoid the acid from going up. (5) Fatty liver: Comment: June 2022 Code(s): K76.0 - Fatty (change of) liver, not elsewhere classified Category: Medical Plan: Low-fat diet and exercise (6) WILMER (obstructive sleep apnea): Comment: Patient has severe obstructive sleep apnea accompanied with nocturnal hypoxemia. CPAP titration corrected the obstructive events as well as hypoxemia with pressure of 15 cm. PATIENT HAS BEEN USING THE NEW CPAP DEVICE REGULARLY, AND BENEFITING. COMPLIANCE IS GOOD. Code(s): G47.33 - Obstructive sleep apnea (adult) (pediatric) Category: Medical Plan: Continue to use the CPAP more than 4 hours a night and benefits from this. Patient follows up with Pulmonary (7) Allergic contact dermatitis: Comment: bilateral chest area rash Code(s): L23.9 - Allergic contact dermatitis, unspecified cause Category: Medical (8) Anxiety: Code(s): F41.9 - Anxiety disorder, unspecified Category: Medical Plan: Patient is very much stressed at work right now. Declined any offers for any counseling or therapy. Plan History of Present Illness The patient is a 64-year-old female presenting with the management of multiple chronic conditions including obstructive sleep apnea, hepatic steatosis, and vitamin deficiencies. The patient has a history of obstructive sleep apnea, for which she was seen by pulmonary in October and has been compliant with CPAP therapy, using it for more than 4 hours a night, which has been beneficial. She was last seen for this condition in July 2024. The patient also has hepatic steatosis and gastroesophageal reflux disease (GERD). A low-fat diet and exercise were discussed as part of the management plan for these conditions. She has a history of endometrial carcinoma and peripheral vascular disease, with the latter last evaluated in April 2023. Her blood work from June 2024 showed normal blood count, renal function, blood sugar, and liver function, with cholesterol levels showing an LDL of 59. However, vitamin B12 and vitamin D levels were low, with vitamin B12 at 255, which is below the preferred level of 300. The patient reports experiencing hot flashes, which she attributes to her work environment where she is not allowed to have drinks in the bathroom, exacerbating her symptoms. She also reports a rash diagnosed as contact dermatitis, likely due to an allergen in her clothing. Health Maintenance - Colonoscopy last performed in 2017 - Mammogram is up to date - Vitamin D supplementation: 1000 to 2000 units daily - Vitamin B12 supplementation: 1000 mcg daily Social History - Employment: Patient is experiencing stress due to a transfer at work to a location where she feels unwelcome. - Exercise: Discussed as part of management for hepatic steatosis and GERD. - Nutritional Intake: Low-fat diet recommended for hepatic steatosis and GERD. Review of Systems - Respiratory: Reports cough, denies dyspnea. - Endocrine: Reports hot flashes. - Dermatological: Reports rash diagnosed as contact dermatitis. Physical Exam Results - Labs: Normal blood count, renal function, blood sugar, liver function; LDL cholesterol at 59; low vitamin B12 and vitamin D levels. Plan Patient was informed and verbally consented to the use of an ambient scribe for clinic note documentation during this visit. 1. Obstructive Sleep Apnea The patient is advised to continue using CPAP therapy for more than 4 hours a night, as it has been beneficial. Follow-up with pulmonary care is recommended to monitor the condition. 2. Hepatic Steatosis A low-fat diet and regular exercise are recommended to manage hepatic steatosis. 3. Gastroesophageal Reflux Disease (Gerd) Management includes dietary modifications such as a low-fat diet and regular exercise. 4. Vitamin B12 Deficiency The patient is advised to take vitamin B12 supplementation of 1000 mcg daily. 5. Vitamin D Deficiency Vitamin D supplementation of 1000 to 2000 units daily is recommended. 6. Contact Dermatitis The patient is advised to use hydrocortisone cream twice daily for one week and to identify and avoid the allergen causing the dermatitis. Discussion Notes During the visit, I discussed the importance of continuing CPAP therapy for obstructive sleep apnea and the benefits observed with its use. We reviewed the management of hepatic steatosis and GERD, emphasizing dietary changes and exercise. I advised on vitamin supplementation for deficiencies and addressed the management of contact dermatitis with topical treatment and allergen avoidance. Patient Instructions - Continue using CPAP for more than 4 hours each night. - Follow a low-fat diet and engage in regular exercise. - Take vitamin D 1000 to 2000 units daily. - Take vitamin B12 1000 mcg daily. - Apply hydrocortisone cream twice daily for one week for rash. - Identify and avoid allergens causing dermatitis. Orders: Orders Vitamin B12 and Folate Today E53.8 - Deficiency of other specified B group vitamins Lipid Panel Today E53.8 - Deficiency of other specified B group vitamins, E78.00 - Pure hypercholesterolemia, unspecified Complete Blood Count Auto Diff Today E53.8 - Deficiency of other specified B group vitamins Comprehensive Met. Panel Today E53.8 - Deficiency of other specified B group vitamins Thyroid Stimulating Hormone Today E53.8 - Deficiency of other specified B group vitamins Free T4 (Free Thyroxine) Today E53.8 - Deficiency of other specified B group vitamins Medications: New cyanocobalamin (vitamin B-12) 1,000 mcg PO DAILY 30 caps 3RF E53.8 - Deficiency of other specified B group vitamins
== END 2025-01-25 08:53 | disposition home or self-care (01) ==
LOC: HO.HMCH 08:24
PROVIDERS: PCP Internal Medicine; Visit Provider Internal Medicine
DX: K21.9 Gastro-esophageal reflux disease without esophagitis (principal); E55.9 Vitamin D deficiency, unspecified; E66.01 Morbid (severe) obesity due to excess calories; Z68.42 Body mass index [BMI] 45.0-49.9, adult; E53.8 Deficiency of other specified B group vitamins; K76.0 Fatty (change of) liver, not elsewhere classified; G47.33 Obstructive sleep apnea (adult) (pediatric); L23.9 Allergic contact dermatitis, unspecified cause; F41.9 Anxiety disorder, unspecified